=== PATIENT | female | born 1965 | race Caucasian/White ===

== ENCOUNTER → 2020-08-23 09:14 | Outpatient (REF) | payer MEDICAID, SELFPAY ==
--- NOTE | 2020-08-23 09:30 | NM_ITS ---
EXAMINATION: NM THYROID UPTAKE AND SCAN CLINICAL INFORMATION: Graves' disease. COMPARISON: No previous radionuclide thyroid scan is available for comparison. Thyroid ultrasound dated 05/21/2018 is available for comparison. TECHNIQUE: Following the oral administration of 287 microcuries of I-123 sodium iodide, thyroid uptake was performed and expressed as a percentage of the administrated dose. Gamma scintillation camera images of the thyroid in the anterior and right and left anterior oblique views were obtained using a pinhole collimator following the administration of 10.1 mCi Tc-99m pertechnetate. FINDINGS: The uptake is 8.6% at 4 hours and 23.7% at 24 hours (Normal radioiodine uptake at 24 hours is 10% to 30%). The radioiodine uptake is normal. The radio pertechnetate thyroid scintigram shows the thyroid gland to be normal in size, shape, and position. The right lobe is slightly larger than the left and shows diffusely more intense activity. There is minimal heterogeneity present bilaterally but no discrete focal abnormalities are present. A very faint and barely perceptible midline pyramidal lobe is visualized. A single anterior radioiodine image is similar to the radio pertechnetate image. IMPRESSION: Other than mild heterogeneity, this radioiodine scan is normal. The radioiodine uptake is also normal.
== END ==
LOC: HO.NUCMED 09:14
PROVIDERS: PCP Family Medicine; Visit Provider Internal Medicine
DX: E05.00 Thyrotoxicosis with diffuse goiter without thyrotoxic crisis or storm (principal)
CPT/HCPCS: 78014; A9512; A9516

== ENCOUNTER → 2020-10-11 10:08 | Outpatient (BNVA) | payer MEDICAID, SELFPAY | PROVIDERS: PCP Family Medicine; Referring Provider Family Medicine; Visit Provider Internal Medicine | DX: Z76.89 Persons encountering health services in other specified circumstances (principal) ==

== ENCOUNTER 2020-10-13 08:42 | Outpatient (REF) | payer MEDICAID, SELFPAY ==
[2020-10-13 10:54] LABS: Thyroid Stimulating Hormone 0.04 uIU/mL (0.32-4.0)
[2020-10-14 10:38] LABS: Triiodothyronine T3 Total 111 ng/dL (76-181)
== END 2020-10-13 08:43 | disposition home or self-care (01) ==
LOC: HO.LAB 08:42
PROVIDERS: PCP Family Medicine; Visit Provider Internal Medicine
DX: E05.00 Thyrotoxicosis with diffuse goiter without thyrotoxic crisis or storm (principal)
CPT/HCPCS: 84439; 84443; 84480

== ENCOUNTER 2020-11-14 08:43 | Outpatient (REF) | payer MEDICAID, SELFPAY ==
--- NOTE | 2020-11-14 08:46 | US_ITS ---
EXAMINATION: US THYROID CLINICAL INFORMATION: Thyrotoxicosis with diffuse goiter without thyrotoxic crisis or storm. COMPARISON: Thyroid ultrasound 05/21/2018. TECHNIQUE: Linear transducer moreland-scale and color Doppler examination with attention to the region of the thyroid. FINDINGS: SIZE: Measurements of the thyroid lobes and nodules are given in sagittal, anteroposterior and transverse dimensions respectively. Right Thyroid Lobe: 5.6 x 2.8 x 2.3 cm, volume 19.4 mL. Previously 5.8 x 3.1 x 2.3 cm, volume 21.6 mL. Parenchyma: The gland echotexture is heterogeneous. Thyroid vascularity is normal. Left Thyroid Lobe: 6.8 x 2.1 x 2.0 cm, volume 14.8 mL. Previously 5.2 x 2.7 x 2.1 cm, volume 15.4 mL. Parenchyma: The gland echotexture is heterogeneous. Thyroid vascularity is normal. Isthmus: 1.1 cm in maximum AP dimension. Previously 0.9 cm. RIGHT THYROID LOBE: No nodules. ISTHMUS: No nodules. LEFT THYROID LOBE: No nodules. NODES: No lymphadenopathy is seen in the tissue surrounding the thyroid gland. US/US thyroid IMPRESSION: Enlarged slightly heterogeneous thyroid gland. The thyroid gland longer appears hypervascular. No focal nodule or adenopathy is seen.
== END 2020-11-14 08:44 | disposition home or self-care (01) ==
LOC: HO.US 08:43
PROVIDERS: Visit Provider Internal Medicine
DX: E05.00 Thyrotoxicosis with diffuse goiter without thyrotoxic crisis or storm (principal)
CPT/HCPCS: 76536

== ENCOUNTER → 2020-12-07 08:36 | Outpatient (BNVA) | payer MEDICAID, SELFPAY | PROVIDERS: PCP Family Medicine; Referring Provider Family Medicine; Visit Provider Internal Medicine ==

== ENCOUNTER 2021-01-03 08:43 | Outpatient (REF) | payer MEDICAID, SELFPAY ==
[2021-01-03 10:24] LABS: Free T4 (Free Thyroxine) 1.05 ng/dL (0.71-1.85)
[2021-01-04 06:42] LABS: Triiodothyronine T3 Total 102 ng/dL (76-181)
== END 2021-01-03 08:44 | disposition home or self-care (01) ==
LOC: HO.LAB 08:43
PROVIDERS: PCP Family Medicine; Visit Provider Internal Medicine
DX: E05.00 Thyrotoxicosis with diffuse goiter without thyrotoxic crisis or storm (principal)
CPT/HCPCS: 36415; 84439; 84480

== ENCOUNTER → 2021-02-12 08:53 | Outpatient (BNVA) | payer MEDICAID, SELFPAY | PROVIDERS: PCP Family Medicine; Visit Provider Internal Medicine ==

== ENCOUNTER 2021-02-13 08:59 | Outpatient (REF) | payer MEDICAID, SELFPAY ==
[2021-02-13 10:45] LABS: Free T4 (Free Thyroxine) 1.02 ng/dL (0.71-1.85); Thyroid Stimulating Hormone 0.21 uIU/mL (0.32-4.0)
[2021-02-14 06:12] LABS: Triiodothyronine T3 Total 90 ng/dL (76-181)
== END 2021-02-13 09:00 | disposition home or self-care (01) ==
LOC: HO.LAB 08:59
PROVIDERS: PCP Family Medicine; Visit Provider Internal Medicine
DX: E05.00 Thyrotoxicosis with diffuse goiter without thyrotoxic crisis or storm (principal)
CPT/HCPCS: 36415; 84439; 84443; 84480

== ENCOUNTER → 2021-03-13 13:35 | Outpatient (BNVA) | payer MEDICAID, SELFPAY | PROVIDERS: PCP Family Medicine; Referring Provider Family Medicine; Visit Provider Internal Medicine | DX: I48.92 Unspecified atrial flutter (principal); I42.9 Cardiomyopathy, unspecified; F17.200 Nicotine dependence, unspecified, uncomplicated; Z79.899 Other long term (current) drug therapy; Z71.6 Tobacco abuse counseling | CPT/HCPCS: 93005; 99212 ==

== ENCOUNTER → 2021-03-14 09:13 | Outpatient (BNVA) | payer MEDICAID, SELFPAY | PROVIDERS: PCP Family Medicine; Visit Provider Physician Assistant | DX: M17.12 Unilateral primary osteoarthritis, left knee (principal); E05.00 Thyrotoxicosis with diffuse goiter without thyrotoxic crisis or storm; I42.9 Cardiomyopathy, unspecified; I48.0 Paroxysmal atrial fibrillation; F17.210 Nicotine dependence, cigarettes, uncomplicated; Z88.6 Allergy status to analgesic agent; Z88.5 Allergy status to narcotic agent; Z88.0 Allergy status to penicillin; Z88.2 Allergy status to sulfonamides; Z88.8 Allergy status to other drugs, medicaments and biological substances; Z91.018 Allergy to other foods | CPT/HCPCS: 20610; 99212; J1040 ==

== ENCOUNTER 2021-07-17 10:00 | Outpatient (REF) | payer MEDICAID, SELFPAY ==
[2021-07-17 11:47] LABS: Thyroid Stimulating Hormone 0.79 uIU/mL (0.32-4.0)
[2021-07-18 19:45] LABS: Triiodothyronine T3 Total 109 ng/dL (76-181)
== END 2021-07-17 10:01 | disposition home or self-care (01) ==
LOC: HO.LAB 10:00
PROVIDERS: PCP Family Medicine; Visit Provider Internal Medicine
DX: E05.00 Thyrotoxicosis with diffuse goiter without thyrotoxic crisis or storm (principal)
CPT/HCPCS: 36415; 84439; 84443; 84480

== ENCOUNTER 2021-08-15 08:53 | Outpatient (REF) | payer MEDICAID, SELFPAY ==
[2021-08-15 10:09] LABS: Free T4 (Free Thyroxine) 1.05 ng/dL (0.71-1.85); Thyroid Stimulating Hormone 0.44 uIU/mL (0.32-4.0)
[2021-08-18 06:16] LABS: Triiodothyronine T3 Total 110 ng/dL (76-181)
== END 2021-08-15 08:54 | disposition home or self-care (01) ==
LOC: HO.LAB 08:53
PROVIDERS: PCP Family Medicine; Visit Provider Surgery
DX: E05.00 Thyrotoxicosis with diffuse goiter without thyrotoxic crisis or storm (principal)
CPT/HCPCS: 36415; 84439; 84443; 84480

== ENCOUNTER 2021-10-19 09:45 | Outpatient (REF) | payer MEDICAID, SELFPAY ==
[2021-10-19 11:59] LABS: Free T4 (Free Thyroxine) 1.04 ng/dL (0.71-1.85); Thyroid Stimulating Hormone 5.02 uIU/mL (0.32-4.0); Vitamin D 25-OH Total 25.6 ng/mL (>30)
[2021-10-22 16:26] LABS: Calcium (PTHI) 9.8 mg/dL (8.6-10.4); PTHI 37 pg/mL (14-64)
== END 2021-10-19 09:46 | disposition home or self-care (01) ==
LOC: HO.LAB 09:45
PROVIDERS: PCP Family Medicine; Visit Provider Internal Medicine
DX: E03.9 Hypothyroidism, unspecified (principal); E55.9 Vitamin D deficiency, unspecified
CPT/HCPCS: 36415; 82306; 83970; 84439; 84443

== ENCOUNTER → 2021-10-24 07:43 | Outpatient (BNVA) | payer MEDICAID, SELFPAY | PROVIDERS: PCP Family Medicine; Visit Provider Internal Medicine ==

== ENCOUNTER 2022-01-21 08:28 | Outpatient (REF) | payer MEDICAID, SELFPAY ==
[2022-01-21 10:09] LABS: Free T4 (Free Thyroxine) 1.27 ng/dL (0.71-1.85); Thyroid Stimulating Hormone 1.66 uIU/mL (0.32-4.0); Vitamin D 25-OH Total 30.8 ng/mL (>30)
== END 2022-01-21 08:29 | disposition home or self-care (01) ==
LOC: HO.LAB 08:28
PROVIDERS: PCP Family Medicine; Visit Provider Internal Medicine
DX: E55.9 Vitamin D deficiency, unspecified (principal); E89.0 Postprocedural hypothyroidism
CPT/HCPCS: 36415; 82306; 84439; 84443

== ENCOUNTER 2022-04-12 12:09 | Outpatient (REF) | payer MEDICAID, SELFPAY ==
[2022-04-12 14:00] LABS: TSH reflex Free T4 3.25 uIU/mL (0.32-4.0)
== END 2022-04-12 12:10 | disposition home or self-care (01) ==
LOC: HO.LAB 12:09
PROVIDERS: PCP Family Medicine; Visit Provider Clinical Nurse Specialist Psychiatric/Mental Health, Adult
DX: Z79.899 Other long term (current) drug therapy (principal)
CPT/HCPCS: 36415; 84443

== ENCOUNTER → 2022-04-29 09:38 | Outpatient (REF) | payer MEDICAID, SELFPAY ==
--- NOTE | 2022-04-29 09:41 | CA_ITS ---
Transthoracic Echocardiogram Patient (Last, First, Middle): Prema Shaver M Gender: Female Date of : 1965 Age: 57 Procedure Date: 04/29/2022 Procedure Type: Transthoracic Echocardiogram Location: OP Height: 170.18 cm Weight: 108.86 kg BSA: 2.18 m2 Heart Rate: bpm BP: 120 / 70 mmHg Pc Network Technician: KHALIF Kimble MD: Claude Blank MD Transportation Project Manager: Nito Santos MD Symptoms: I42.9 - Cardiomyopathy, unspecified Study Quality: Good ECG Rhythm: Sinus Conclusions: - 1. Normal LV systolic function with impaired relaxation filling pattern 2. Normal cardiac valvular Doppler 3. Normal RV systolic pressure 4. No pericardial effusion Findings Left Ventricle Normal left ventricular size, thickness, and systolic function. The visually estimated ejection fraction is between 55-60%. Spectral Doppler is indicative of an impaired relaxation filling pattern. E/E prime ratio is <8, consistent with normal filling pressures. Evidence suggests grade I (mild) diastolic dysfunction. Right Ventricle Normal right ventricular cavity size and systolic function. Atria Both atria are normal in size. There is a mobile atrial septum noted. Interatrial shunt cannot be excluded. Aortic Valve Normal aortic valve structure and function. There is no aortic valve stenosis. There is no aortic valve regurgitation. Mitral Valve Normal mitral valve structure and function. There is trace mitral valve regurgitation. There is no mitral valve stenosis. Pulmonic Valve The pulmonic valve was not well visualized. Tricuspid Valve Likely normal tricuspid valve structure and function. There is trace tricuspid valve regurgitation. The right ventricular systolic pressure is normal. The right ventricular systolic pressure is 17 mmHg. Normal right atrial pressure. There is no evidence of pulmonary hypertension. Great Vessels All visible segments of the aorta are normal in size. The pulmonary artery was not well visualized. Venous The inferior vena cava is normal in size and collapses greater than 50% with inspiration. Pericardium/Pleural There is no evidence of pericardial effusion. Prior Study Comparison No significant change compared to prior study dated: 02/10/2019. Measurements 2D Linear Measurements IVSd: 1.09 0.6-0.9/0.6-1.0 cm LVIDd: 4.93 3.9-5.3/4.2-5.9 cm LVIDd Index: 2.26 2.4-3.2/2.2-3.1 cm/m2 LVIDs: 3.29 2.0-3.6 cm LVPWd: 1.01 0.7-1.1 cm LA Diam: 3.50 2.7-3.8/3.0-4.0 cm LAIDs Index: 1.61 1.5-2.3 cm/m2 LV Mass: 236.71 67-162/88-224 g LV Mass Index: 108.58 43-95/49-115 g/m2 LVOT Diam: 2.30 3.0+(-)1.3 cm 2D Systolic Function EF 4C: 61.50 >55% EF 2C: 56.30 >55% EF BiP: 59.60 >55% Mitral Valve MV Pk E: 0.59 MV PK A: 0.51 MV Decel Time: 310.00 E/A: 1.10 E'Lateral: 10.00 E'Medial: 6.09 E/E' Med: 9.70 E/E' Lat: 5.90 PHT: 91.00 MVA PHT: 2.42 Decel [place]: 1.91 Aortic Valve AoV Pk Oscar: 1.33 AoV Mn Oscar: 0.74 AoV VTI: 0.24 AoV Pk Grad: 7.00 Aov Mn Grad: 3.00 RODY Cont.VTI: 3.80 LVOT LVOT Pk Oscar: 0.93 LVOT Mn Oscar: 0.66 LVOT VTI: 0.22 LVOT Pk Grad: 3.00 LVOT Mn Grad: 2.00 LVOT Diam: 2.30 LVOT Area: 4.15 Diastolic Function MV Pk E: 0.59 MV Pk A: 0.51 E/A: 1.10 E'Medial: 6.09 E/E' Med: 9.70 E' Laterial: 10.00 E/E' Lat: 5.90 Right Ventricle TAPSE (mm): 19.50 TVS' Oscar: 11.00 Tricuspid Valve TR Pk Oscar: 1.86 TR Pk Grad: 14.00 RA Press: 3.00 RVSP: 17.00 Great Vessels Aorta Sinus of Valsalva: 3.57 2.0-3.[address] [place]: 3.48 1.7-3.4 cm Ao Asc: 3.90 2.1-3.4 cm Ao Arch: 3.50 Updated in Other Vendor System with Status of Final Nito Santos MD electronically signed on 04/29/2022 4:24:34 PM with status of Final
--- NOTE | 2022-04-29 09:41 | ECG_ITS ---
Hook-up date: 2022-04-29 09:24:00 Duration: 26:53:00 Test Indications: UNSPEC. ATRIAL FLUTTER Medications: [id number] QRS complexes 19 Ventricular ectopics which represent <1 % of total QRS comp. 8 Supraventricular ectopics which represent <1 % of total QRS comp. * Paced QRS complexs which represent % of total QRS comp. VENTRICULAR ECTOPY 19 Isolated 0 Bigeminal Cycles 0 Couplets 0 Runs 0 Beats in Runs * Beats LONGEST at * BPM at :: -- * Beats FASTEST at * BPM at :: -- SUPRAVENTRICULAR ECTOPY 8 Isolated 0 Couplets 0 Runs 0 Beats in Runs * Beats LONGEST at * BPM at :: -- * Beats FASTEST at * BPM at :: -- HEART RATES 48 MIN at 04:51:33 2022-04-30 72 AVG 109 MAX at 13:17:05 2022-04-29 LONGEST RR 1.3360 secs at 08:19:29 2022-04-30 S-T LEVELS Channel 1 - 128 mm at 09:24:00 2022-04-29 - 128 mm at 09:24:00 2022-04-29 Channel 2 - 128 mm at 09:24:00 2022-04-29 - 128 mm at 09:24:00 2022-04-29 Channel 3 - 128 mm at 02:84:31 -- - 128 mm at 02:84:31 Basic rhythm Normal sinus rhythm No long pause or profound bradycardia No sustained Atrial flutter Rare ectopy Patient did not report any symptoms in the diary Referred By: Claude Blank Overread By: AMRIT DENNISON MD
== END ==
LOC: HO.CARD 09:38
PROVIDERS: PCP Family Medicine; Visit Provider Internal Medicine
DX: I42.9 Cardiomyopathy, unspecified (principal); I48.92 Unspecified atrial flutter
CPT/HCPCS: 93225; 93226; 93306

== ENCOUNTER 2022-05-21 11:25 | Outpatient (REF) | payer MEDICAID, SELFPAY ==
[2022-05-21 12:55] LABS: Free T4 (Free Thyroxine) 1.21 ng/dL (0.71-1.85); Vitamin D 25-OH Total 29.7 ng/mL (>30)
== END 2022-05-21 11:26 | disposition home or self-care (01) ==
LOC: HO.LAB 11:25
PROVIDERS: Internal Medicine; PCP Family Medicine; Visit Provider Nurse Practitioner Family
DX: E89.0 Postprocedural hypothyroidism (principal); E55.9 Vitamin D deficiency, unspecified
CPT/HCPCS: 36415; 82306; 84439; 84443

== ENCOUNTER → 2022-07-18 12:19 | Outpatient (BNVA) | payer MEDICAID, SELFPAY | PROVIDERS: PCP Family Medicine; Visit Provider Physician Assistant | DX: M17.12 Unilateral primary osteoarthritis, left knee (principal) | CPT/HCPCS: 20610; 99212; J1040 ==

== ENCOUNTER 2022-10-04 11:28 | Outpatient (REF) | payer MEDICAID, SELFPAY ==
--- NOTE | ~2022-10-04 | XR_ITS ---
EXAMINATION: XR SHOULDER, LEFT CLINICAL INFORMATION: Left shoulder pain. COMPARISON: None TECHNIQUE: AP external rotation, Grashey, scapular Y, and axillary views of the left shoulder. FINDINGS: There is no evidence of acute fracture or dislocation of the left shoulder. No calcific tendinitis is appreciated. There is a large spur about the humeral head at the glenohumeral joint. Joint space appears maintained. There is some subchondral cysts present in the region of insertion of the supraspinatus tendon. There is some degenerative spurring seen at the acromioclavicular joint. No destructive bony lesions identified. XR/XR shoulder LT min 2V IMPRESSION: No evidence of acute fracture, dislocation, or calcific tendinitis of the left shoulder. Glenohumeral joint and acromioclavicular joint degenerative change as described.
--- NOTE | ~2022-10-04 | XR_ITS ---
EXAMINATION: XR LUMBOSACRAL SPINE WITH OBLIQUES CLINICAL INFORMATION: Back pain. COMPARISON: None TECHNIQUE: AP, both oblique, and lateral views of the lumbar spine. Lateral view of the lumbosacral junction. FINDINGS: There are 5 [id number]-[id number] lumbar vertebra. No acute fracture or spondylolysis is appreciated. There are mild grade 1 spondylolistheses seen at the L3-L4 and L2-L3 levels. There is mild scoliosis convex left. There is narrowing of the L2-L3 disc space with marginal spurring right laterally. There is some narrowing of the right lateral disc space at L3-L4. There is bilateral facet arthropathy seen at the right L5-S1 level and at the left L4-L5 and L5-S1 levels. No significant sacroiliac joint abnormality is appreciated. XR/XR lumbar spine 4V min IMPRESSION: Scoliosis with degenerative disc disease and facet arthropathy without evidence of acute fracture.
[2022-10-04 13:30] LABS: Free T4 (Free Thyroxine) 1.16 ng/dL (0.71-1.85); Thyroid Stimulating Hormone 6.55 uIU/mL (0.32-4.0)
== END 2022-10-04 11:29 | disposition home or self-care (01) ==
LOC: HO.LAB 11:28
PROVIDERS: Absent Provider Internal Medicine; PCP Family Medicine; Visit Provider Family Medicine
DX: M25.512 Pain in left shoulder (principal); M54.89 Other dorsalgia; E55.9 Vitamin D deficiency, unspecified; E89.0 Postprocedural hypothyroidism
CPT/HCPCS: 36415; 72110; 73030; 82306; 84439; 84443

== ENCOUNTER → 2022-11-19 10:26 | Outpatient (BNVA) | payer MEDICAID, SELFPAY | PROVIDERS: PCP Family Medicine; Referring Provider Family Medicine; Visit Provider Internal Medicine | DX: I48.92 Unspecified atrial flutter (principal); I42.9 Cardiomyopathy, unspecified; Z79.899 Other long term (current) drug therapy | CPT/HCPCS: 93005; 99212 ==

== ENCOUNTER 2023-04-04 06:12 | Outpatient (REF) | payer MEDICAID, SELFPAY | END 2023-04-04 06:13 | disposition home or self-care (01) | LOC: HO.HOSX 06:12 | PROVIDERS: Visit Provider Physician Assistant | DX: Z13.89 Encounter for screening for other disorder (principal) ==

== ENCOUNTER 2023-05-09 12:41 | Outpatient (REF) | payer MEDICAID, SELFPAY ==
[2023-05-09 14:11] LABS: Free T4 (Free Thyroxine) 1.25 ng/dL (0.71-1.85); Thyroid Stimulating Hormone 0.98 uIU/mL (0.32-4.0)
== END 2023-05-09 12:42 | disposition home or self-care (01) ==
LOC: HO.LAB 12:41
PROVIDERS: PCP Family Medicine; Visit Provider Internal Medicine
DX: E89.0 Postprocedural hypothyroidism (principal)
CPT/HCPCS: 36415; 84439; 84443

== ENCOUNTER 2023-11-27 13:28 | Outpatient (AMB) | payer MEDICAID, SELFPAY ==
--- NOTE | 2023-11-27 13:38 | A.OFFVIS_ITS ---
Intake Vital Signs 11/27/23 13:39 Height 5 ft 7 in Weight 245 lb BMI 38.4 Intake Visit Reasons: Ov- Left knee OA last injection 07/18/22 Intake Note: Prema a 57 year old female presents today for a follow up of left knee OA, last injection 07/18/22. Patient reports last injection provided her relief for about 9 months, she would like repeat injection today. Finds no relief with Tylneol and Advil. Allergies hydrocodone [From VICODIN] Allergy (Severe, Verified 11/19/22 10:29) ANAPHYLAXIS morphine [MORPHINE] Allergy (Severe, Verified 11/19/22 10:29) ANAPHYLAXIS aspirin [Aspirin] Allergy (Mild, Verified 11/19/22 10:29) SOB/RASH banana [Banana] Allergy (Mild, Verified 11/19/22 10:29) THROAT SWELLING Penicillins Allergy (Mild, Verified 11/19/22 10:29) RASH oxycodone [From Percocet] Allergy (Unknown, Verified 11/19/22 10:29) unknown Sulfa (Sulfonamide Antibiotics) Allergy (Unknown, Verified 11/19/22 10:29) Unknown HPI Ov- Left knee OA last injection 07/18/22 HPI Details 58-year-old female who returns to the [facility] today for a follow-up of left knee pain. She states she has pain in her left knee which is aggravated with ambulation and sleeping. She finds no relief with Tylenol or Advil. She had her last injection on 07/18/22 which lasted for about 9 months. She would like to repeat the injection. [facility] Medical History Cardiomyopathy Graves disease History of cardiomyopathy Paroxysmal atrial flutter Postoperative hypothyroidism Vitamin D deficiency Surgical History Hx of thyroidectomy History of bunionectomy Family History Father No problems noted. Mother No problems noted. Social History Alcohol intake: current Alcohol intake frequency: does not drink Cigarette Packs Per Day: 0.5 Cigarettes Per Day: 10 Advance Directives Date on File: 08/23/20 Review of Systems Const All systems reviewed & are unremarkable except as noted in HPI and below Physical Exam Vital Signs: BMI result Body Mass Index 38.4 Extrem Other: Left knee: Skin intact, no erythema or joint effusion. Tenderness along the medial and lateral joint line. Full ROM with crepitus. Negative Lorraine?s. No ligamentous laxity. NVI. Office Procedures Joint Injection/Drain Joint Injection/Drain Primary Site: left knee Prep: site was prepped using aseptic technique, ethochloride spray was applied and injection warnings given Injected: 80 mg of, DepoMedrol, with 8 mL of, 1% plain lidocaine and in the joint Approach Used: anterolateral Procedure: The patient tolerated the procedure well and there was some relief with the local anesthesia Coding 90281 - Glenohumeral/Tronchanteric Bursa/Intraarticular Procedure code (CPT) selection complete Assessment & Plan Assessment & Plan (1) Osteoarthritis of left knee: Code(s): M17.12 - Unilateral primary osteoarthritis, left knee Qualifiers: Osteoarthritis type: primary Qualified Code(s): M17.12 - Unilateral primary osteoarthritis, left knee Plan We discussed options today which include steroid injection. They did consent to move forward with the left knee injection, which was tolerated well. I recommended rest, ice and elevation and OTC anti-inflammatories PRN for discomfort. If symptoms persist or worsens over the next 6-8 weeks, patient will contact the office, otherwise follow-up as needed. Patient Instructions: Scribed for Laura Hurd PA-C, by Carlos Candelario medical aides teacher, on 11/27/2023 at 2:15 PM EST. Laura Avery PA-C, have personally reviewed and agree with the information entered by the scribe. Coding Level of Care Code Est Pt Level 3 (54729) Diagnoses Primary osteoarthritis of left knee M17.12 Osteoarthritis type: primary CPT Codes Coding - Joint 7: 24850 - Glenohumeral/Tronchanteric Bursa/Intraarticular ([id number])
[2023-11-27 13:39] VITALS: BMI 38.4
== END 2023-11-27 14:10 | disposition home or self-care (01) ==
PROVIDERS: PCP Family Medicine; Visit Provider Physician Assistant
DX: M17.12 Unilateral primary osteoarthritis, left knee (principal)
CPT/HCPCS: 20610; 99213

== ENCOUNTER → 2023-11-27 13:28 | Outpatient (BNVA) | payer MEDICAID, SELFPAY | PROVIDERS: PCP Family Medicine; Visit Provider Physician Assistant | DX: M17.12 Unilateral primary osteoarthritis, left knee (principal) | CPT/HCPCS: 20610; 99212; J1040 ==

== ENCOUNTER 2023-12-30 14:07 | Outpatient (REF) | payer MEDICAID, SELFPAY ==
[2023-12-30 16:31] LABS: Estimated Average Glucose 91 mg/dL; Hemoglobin A1c % 4.8 % (<6.0)
[2023-12-30 16:43] LABS: Alanine Aminotransferase 14 U/L (0-31); Albumin Level 4.4 g/dL (3.5-5.0); Alkaline Phosphatase 48 U/L (39-117); Anion Gap 14 (12-20); Aspartate Amino Transferase 14 U/L (5-31); Bilirubin Total 0.4 mg/dL (0.0-1.0); Blood Urea Nitrogen 15 mg/dL (9-16); Calcium 10.2 mg/dL (8.4-10.2); Carbon Dioxide 25 mmol/L (22-29); Chloride 108 mmol/L (96-108); Cholesterol 177 mg/dL (<200); Estimated Glomerular Filt Rate > 60; Glucose Random 92 mg/dL (60-115); HDL Cholesterol 60 mg/dL (>40); LDL Cholesterol Calculated 100 mg/dL (<100); Potassium 4.3 mmol/L (3.3-5.1); Sodium 143 mmol/L (135-145); Total Protein 7.2 g/dL (6.5-8.0); Triglycerides 86 mg/dL (<150)
[2023-12-30 16:51] LABS: Free T4 (Free Thyroxine) 1.19 ng/dL (0.71-1.85); Thyroid Stimulating Hormone 1.56 uIU/mL (0.32-4.0); Vitamin D 25-OH Total 69.1 ng/mL (>30)
[2023-12-30 17:21] LABS: Reflex LDLD? No
== END 2023-12-30 14:08 | disposition home or self-care (01) ==
LOC: HO.HHCL 14:07
PROVIDERS: Visit Provider Family Medicine
DX: E89.0 Postprocedural hypothyroidism (principal)
CPT/HCPCS: 36415; 80053; 80061; 82306; 83036; 84439; 84443

== ENCOUNTER 2024-01-14 10:07 | Outpatient (REF) | payer MEDICAID, SELFPAY | END 2024-01-14 10:08 | disposition home or self-care (01) | LOC: HO.MAMMO 10:07 | PROVIDERS: PCP Family Medicine; Visit Provider Family Medicine | DX: Z12.31 Encounter for screening mammogram for malignant neoplasm of breast (principal) | CPT/HCPCS: 77063; 77067 ==

== ENCOUNTER → 2024-01-14 10:30 | Outpatient (BNV) | payer MEDICAID, SELFPAY | PROVIDERS: PCP Family Medicine; Visit Provider Radiology Diagnostic Radiology | DX: Z12.31 Encounter for screening mammogram for malignant neoplasm of breast (principal) | CPT/HCPCS: 77063; 77067 ==

== ENCOUNTER 2024-08-17 09:28 | Outpatient (AMB) | payer MEDICAID, SELFPAY ==
--- NOTE | 2024-08-17 09:31 | A.OFFVIS_ITS ---
Vital Signs 08/17/24 09:40 Height 5 ft 7 in Weight 245 lb BMI 38.4 Intake Visit Reasons: Inj-Left knee OA last injection -last inj 11/27/23 Intake Note: Prema a 59 year old female who presents today for a follow up of left knee OA. Patient reports her last injection on 11/27/23 provided her with relief until about 6 weeks ago. She would like to repeat injection today. Allergies hydrocodone [From VICODIN] Allergy (Severe, Verified 08/17/24 09:40) ANAPHYLAXIS morphine [MORPHINE] Allergy (Severe, Verified 08/17/24 09:40) ANAPHYLAXIS aspirin [Aspirin] Allergy (Mild, Verified 08/17/24 09:40) SOB/RASH banana [Banana] Allergy (Mild, Verified 08/17/24 09:40) THROAT SWELLING Penicillins Allergy (Mild, Verified 08/17/24 09:40) RASH oxycodone [From Percocet] Allergy (Unknown, Verified 08/17/24 09:40) unknown Sulfa (Sulfonamide Antibiotics) Allergy (Unknown, Verified 08/17/24 09:40) Unknown Medication List - Last Reconciled 08/17/24 by Laura Hurd PA-C aripiprazole (Abilify) 15 mg PO DAILY cholecalciferol (vitamin D3) 25 mcg PO DAILY 30 days clonazepam 1 mg PO DAILY levothyroxine 175 mcg PO DAILY 30 days loratadine 10 mg PO DAILY metoprolol tartrate 25 mg PO BID topiramate (Topamax) 25 mg PO BID trazodone [address] [facility] Medical History Cardiomyopathy Graves disease History of cardiomyopathy Paroxysmal atrial flutter Postoperative hypothyroidism Vitamin D deficiency Surgical History Hx of thyroidectomy History of bunionectomy Family History Father No problems noted. Mother No problems noted. Social History Alcohol intake: current Alcohol intake frequency: does not drink Cigarette Packs Per Day: 0.5 Cigarettes Per Day: 10 Advance Directives Date on File: 08/23/20 Review of Systems Const All systems reviewed & are unremarkable except as noted in HPI and below Physical Exam Vital Signs: BMI result Body Mass Index 38.4 Extrem Other: Left knee: Skin intact, no erythema or joint effusion. Tenderness along the medial and lateral joint line. Full ROM with crepitus. Negative Lorraine?s. No ligamentous laxity. NVI. Office Procedures Joint Injection/Aspiration Joint Injection/Aspiration Primary Site: left knee Prep: site was prepped using aseptic technique, ethochloride spray was applied and injection warnings given Injected: 80 mg of, DepoMedrol, with 8 mL of, 1% plain lidocaine and in the joint Approach Used: anterolateral Procedure: The patient tolerated the procedure well and there was some relief with the local anesthesia Coding 45615 - Glenohumeral/Tronchanteric Bursa/Intraarticular Procedure code (CPT) selection complete Assessment & Plan Assessment & Plan (1) Osteoarthritis of left knee: Code(s): M17.12 - Unilateral primary osteoarthritis, left knee Category: Medical Qualifiers: Osteoarthritis type: primary Qualified Code(s): M17.12 - Unilateral primary osteoarthritis, left knee Plan We discussed options today, which include steroid injection. The patient did consent to move forward with the injection, which was tolerated well.? I recommended rest, ice and elevation and OTC antiinflammatories prn for discomfort. If symptoms persist over the next 6-8 weeks, they will contact our office, otherwise, prn Coding Level of Care Code Est Pt Level 3 (54701) Complex EM visit Add On G2211 Diagnoses Primary osteoarthritis of left knee M17.12 Osteoarthritis type: primary CPT Codes Coding - Joint 7: 69955 - Glenohumeral/Tronchanteric Bursa/Intraarticular ([id number])
[2024-08-17 09:40] VITALS: BMI 38.4
== END 2024-08-17 09:49 | disposition home or self-care (01) ==
PROVIDERS: PCP Family Medicine; Visit Provider Physician Assistant
DX: M17.12 Unilateral primary osteoarthritis, left knee (principal)
CPT/HCPCS: 20610; 99213

== ENCOUNTER → 2024-08-17 09:28 | Outpatient (BNVA) | payer MEDICAID, SELFPAY | PROVIDERS: PCP Family Medicine; Visit Provider Physician Assistant | DX: M17.12 Unilateral primary osteoarthritis, left knee (principal) | CPT/HCPCS: 20610; 99212; J1010; J2003 ==

== ENCOUNTER 2024-12-30 12:26 | Outpatient (AMB) | payer MEDICAID, SELFPAY ==
--- NOTE | 2024-12-30 12:28 | A.OFFVIS_ITS ---
Vital Signs 12/30/24 12:29 Height 5 ft 7 in Weight 238 lb 15.697 oz BMI 37.4 BP 110/70 Blood Pressure Location Lt brachial Position Sitting Pulse 78 Pulse Source Pulse Oximeter Intake Visit Reasons: 2 yrs followup w/ekg dx: paf Patient Access Specialist Required: No Accompanied by: Self / Same As Patient Allergies hydrocodone [From VICODIN] Allergy (Severe, Verified 08/17/24 09:40) ANAPHYLAXIS morphine [MORPHINE] Allergy (Severe, Verified 08/17/24 09:40) ANAPHYLAXIS aspirin [Aspirin] Allergy (Mild, Verified 08/17/24 09:40) SOB/RASH banana [Banana] Allergy (Mild, Verified 08/17/24 09:40) THROAT SWELLING Penicillins Allergy (Mild, Verified 08/17/24 09:40) RASH oxycodone [From Percocet] Allergy (Unknown, Verified 08/17/24 09:40) unknown Sulfa (Sulfonamide Antibiotics) Allergy (Unknown, Verified 08/17/24 09:40) Unknown Medication List - Last Reconciled 12/30/24 by Claude Blank MD aripiprazole (Abilify) 15 mg PO DAILY cholecalciferol (vitamin D3) 25 mcg PO DAILY 30 days clonazepam 1 mg PO DAILY cyclobenzaprine 10 mg PO BEDTIME ibuprofen 400 mg PO Q8H levothyroxine 175 mcg PO DAILY 30 days loratadine 10 mg PO DAILY metoprolol tartrate 25 mg PO BID topiramate (Topamax) 25 mg PO BID trazodone 75 mg PO DAILY HPI Comments Details: Prema returns for follow-up regarding atrial flutter and cardiomyopathy. To recall, she underwent TERENCE/cardioversion in 2016 for atrial flutter. She is maintained only on beta-blockers and has been doing quite well. Due to low thromboembolic risk, not on any anticoagulation. Also due to lack of recurrent episodes. Denies any angina or palpitations or any other cardiac complaints. [facility] Medical History Cardiomyopathy Graves disease History of cardiomyopathy Paroxysmal atrial flutter Postoperative hypothyroidism Vitamin D deficiency Surgical History Hx of thyroidectomy History of bunionectomy Family History Father No problems noted. Mother No problems noted. Social History Alcohol intake: current Alcohol intake frequency: does not drink Cigarette Packs Per Day: 0.5 Cigarettes Per Day: 10 Advance Directives Date on File: 08/23/20 Review of Systems Const Denies chills, Reports fatigue, Denies fever(s), Denies weight gain and Denies weight loss ENT Denies dizziness Card Denies chest pain, Denies leg edema, Denies lightheadedness, Denies palpitations, Denies dyspnea on exertion, Denies orthopnea and Denies other Resp Denies cough and Denies dyspnea on exertion GI Denies hematochezia and Denies change in stool character Musc Denies abnormal gait, Denies muscle weakness, Denies numbness, Denies radiating pain into limb and Denies tingling Neuro Denies abnormal gait, Denies dizziness, Denies numbness and Denies tingling Endo Reports fatigue and Denies palpitations Physical Exam Vital Signs: Last Vital Signs Pulse 78 12/30/24 12:29 BP 110/70 12/30/24 12:29 BMI result Body Mass Index 37.4 Const General: comfortable and no acute distress Orientation/consciousness: patient oriented x3 HEENT Other: Unremarkable Head: Yes normal to inspection Neck Neck: Yes normal visual inspection Chest Chest palpation & inspection: normal inspection of the chest Resp Auscultation: clear to auscultation bilaterally Cardio Palpation: normal PMI Heart sounds: S1 normal heart sound present, S2 normal heart sound present, no gallops, no murmurs and no rubs GI Palpation (GI): Soft to palpation Back/Spine/Pelvis Other: unremarkable Skin General skin exam: no rashes or lesions noted Neuro General: patient oriented x3 Extrem General: Yes normal to inspection Psych Mental Status: mental status grossly normal Office Procedures EKG Details: EKG with underlying sinus rhythm at 78/Min; nonspecific ST-T changes; [place]. [id number], Complete Assessment & Plan Assessment & Plan (1) Paroxysmal atrial flutter: Code(s): I48.92 - Unspecified atrial flutter Category: Medical Plan: Continue beta-blockers. Not on anticoagulation due to lack of recurrence, as well as low thromboembolic risk. 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 Most recent echocardiogram shows normal LVEF at 55-60%. Plan If any concerning cardiac symptoms, advised her to contact us immediately. She understands. Coding Level of Care Code Est Pt Level 3 (04772) Diagnoses Paroxysmal atrial flutter I48.92 Cardiomyopathy I42.9 CPT Codes EKG - CPT: 73109-[id number], Complete ([id number])
[2024-12-30 12:29] VITALS: BP 110/70; PULSE 78; BMI 37.4
--- OUTSIDE RECORDS SUMMARY | 2024-12-30 13:22 | XMS_ITS | Encounter Summary ---
Author Organization [employer] Address [address] [place] [address] Care Team Providers Care Tubing Oiler Name Role Phone Jaci Stauffer MD Primary Care Provider [phone] Reason for Visit * Reason Onset Date Comments Med Refill 09/13/2024 Encounter Details Date Type Department Care Team (Late st Contact Info) Description 09/13/2024 Telephone [facility] MEDICINE [address] [place] [address] Jaci Stauffer MD [address] [place] [address] Med Refill Social History Tobacco Use Types Packs/Day Years Used Date Smoking Tobacco: Never Smokeless Tobacco: Never Alcohol Use Standard Drinks/Week Comments Never 0 (1 standard drink = 0.6 oz pur e alcohol) Alcohol Answer Date Recorded Frequency of Alcohol Consumption Not on file 12/30/2023 Average Number of Drinks Not on file 024 Frequency of Binge Drinking Not on file 12/12 Score 0 12/30/2023 Depression Answer Date Recorded Patient Health Questionnaire-9 Score 0 12/30/2023 Patient Health Questionnaire-9 Score 0 12/30/2023 Last PHQ-9: Questionnaire Data Not on file 0 12/30/2023 Housing Stability Answer Date Recorded What is your housing situation today? I have logan lassiter 11/13/[address] you li ve. Do you have problems with any of the following? None of the above 11/13/2023 Food Insecurity Answer Date Recorded Within the past 12 months, y ou worried that your food would run out before you got money to buy more: Never True 11/13/2023 Within the past 12 months,th e food you bought just didn't last and you didn't have enough money to get more: Never True 02/2024 Transportation Answer Date Recorded In the past 12 months, has l ack of transportation kept you from medical appts, meetings, work or from getting things needed for daily living? Yes, it has kept me from medical appointments or getting medications. 12/30/2023 Utilities Answer Date Recorded In the past 12 months, has t he electric, gas, oil or water company threatened to shut off services in your home? No 11/13/2023 Depression Answer Date Recorded Patient Health Questionnaire-2 Score 0 12/30/2023 Comments Unknown Sex and Gender Information Value Date Recorded Sex Assigned at Female 09/09/2022 10:18 AM EDT Legal Sex Female 10:18 AM EDT Gender Identity Female 09/09/2022 10:18 AM EDT Sexual Orientation Straight 09/09/2022 10 :18 AM EDT documented as of this encounter Miscellaneous Notes * Telephone Encounter - Misty Cooley LPN - 09/13/2024 1:12 PM EST Medication pended to PCP. * Telephone Encounter - Mirella Kwan - 09/13/2024 11:58 AM EST TC from pt requesting medication refill. Medications needing refill : cyclobenzaprine (Flexeril) 10 MG tablet levothyroxine (Synthroid, Levoxyl) 175 MCG tablet loratadine (Claritin) 10 MG tablet To be sent to: [facility] documented in this encounter Plan of Treatment Upcoming Encounters Date Type Department Care Team (Late st Contact Info) Description 01/04/2025 10:00 AM EST Office Visit [facility] MEDICINE [address] [place] [address] Jaci Stauffer MD [address] [place] [address] documented as of this encounter Visit Diagnoses Not on filedocumented in this encounter Additional Health Concerns Assessment Noted Time PHQ-9 Depression Total Score: 0 12/30/19 24 1:18 PM EST documented as of this encounter Care Teams Tubing Oiler Relationship Specialty Start Date End Date Jaci Stauffer MD [address] [place] [address] PCP - General Family Medicine 10/22/12 documented as of this encounter
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
--- OUTSIDE RECORDS SUMMARY | 2024-12-30 13:22 | XMS_ITS | Encounter Summary ---
Author Organization [employer] Address [address] [place] [address] Care Team Providers Care Horticultural Agent Name Role Phone Jaci Stauffer MD Primary Care Provider [phone] Reason for Visit * Reason Onset Date Comments Chart Prep 12/29/2024 Encounter Details Date Type Department Care Team ([facility] st Contact Info) Description 12/29/[address] [facility] MEDICINE [address] [place] [address] Jaci Stauffer MD [address] [place], [place] [phone] Chart Prep Social History Tobacco Use Types Packs/Day Years [...] the past 12 months, has t he [employer], gas, oil or water company threatened to [...] encounter Miscellaneous Notes * Telephone Encounter - Breanne Fair [place] - 12/29/2024 11:45 AM EST Chart Prep Labs: done Images: done Vaccines due: Covid Due, Hep A Due, PCV20 Due, Flu Due, and Shingles in pharmacy Due Referrals: Gastroenterology pt was contacted multiple times to schedule 7 never returned the call and Pulmonology referral was cancelled since pcp has to send a Thoracic Surgeon referral instead. Screenings: Colonoscopy , PAP, and HIV screening Overdue care gaps: Sbirt, SDOH, PHQ-9, and Oral Health documented in this encounter Plan of Treatment Upcoming Encounters Date Type Department Care Team (Late st Contact Info) Description 01/04/2025 10:00 AM EST Office Visit [facility] MEDICINE [address] [place] [address] Jaci Stauffer MD [address] [place] [address] documented as of this encounter Visit Diagnoses Not on filedocumented in this encounter Additional Health Concerns Assessment Noted Time PHQ-9 Depression Total Score: 0 12/30/19 24 1:18 PM EST documented as of this encounter Care Teams Horticultural Agent Relationship Specialty Start Date End Date Jaci Stauffer MD [address] [place] [address] PCP - General Family Medicine 10/22/12 documented as of this encounter
--- OUTSIDE RECORDS SUMMARY | 2024-12-30 13:22 | XMS_ITS | Encounter Summary ---
Author Organization [employer] Address [address] [facility] [address] [address] 7[address] [place] [address] Care Team Providers Care Material Processor Name Role Phone Jaci Stauffer MD Primary Care Provider [phone] Encounter Details Date Type Department Care Team (Latest Contact Info) Description 12/28/2024 Travel Social History Tobacco Use Types Packs/Day Years [...] AM EDT documented as of this encounter Plan of Treatment Upcoming Encounters Date Type Department Care Team (Late st Contact Info) Description 01/04/2025 10:00 AM EST Office Visit [facility] [address] [place] [address] Jaci Stauffer MD [address] [place] [address] documented as of this encounter Visit Diagnoses Not on filedocumented in this encounter Additional Health Concerns Assessment Noted Time PHQ-9 Depression Total Score: 0 12/30/19 24 1:18 PM EST documented as of this encounter Care Teams Material Processor Relationship Specialty Start Date End Date Jaci Stauffer MD [address] [place] [phone] PCP - General Family Medicine 10/22/12 documented as of this encounter
--- OUTSIDE RECORDS SUMMARY | 2024-12-30 13:22 | XMS_ITS | Encounter Summary ---
Author Organization [employer] Address [address] [facility] [address] 7[address] [place] [address] Care Team Providers Care Neurological Surgeon Name Role Phone Jaci Stauffer MD Primary Care Provider [phone] Reason for Visit * Reason Comments Pre-visit Planning Pre-visit planning - LVM Encounter Details Date Type Department Care Team ([facility] st Contact Info) Description 12/22/2024 Patient Outreach [facility] [address] [place] [address] Jaci Stauffer MD [address] [place] [address] Pre-visit Planning (Pre-visit planning - LVM ) Social History Tobacco Use Types Packs/Day Years [...] AM EDT documented as of this encounter Progress Notes * Alina Cantu - 12/22/2024 11:50 AM EST GALEN Gaytan placed outbound call to patient to complete pre-visit planning. No answer at this time. Patient name and were not confirmed. CC left voicemail requesting return call. Direct contact information provided. documented in this encounter Plan of Treatment Upcoming Encounters Date Type Department Care Team (Late st Contact Info) Description 01/04/2025 10:00 AM EST Office Visit [facility] [address] [place] [address] Jaci Stauffer MD [address] [place] [address] documented as of this encounter Visit Diagnoses Not on filedocumented in this encounter Additional Health Concerns Assessment Noted Time PHQ-9 Depression Total Score: 0 12/30/19 24 1:18 PM EST documented as of this encounter Care Teams Neurological Surgeon Relationship Specialty Start Date End Date Jaci Stauffer MD [address] [place] [address] PCP - General Family Medicine 10/22/12 documented as of this encounter
== END 2024-12-30 13:06 | disposition home or self-care (01) ==
PROVIDERS: PCP Family Medicine; Visit Provider Internal Medicine
DX: I48.92 Unspecified atrial flutter (principal); I42.9 Cardiomyopathy, unspecified
CPT/HCPCS: 93010; 99213

== ENCOUNTER → 2024-12-30 12:26 | Outpatient (BNVA) | payer MEDICAID, SELFPAY | PROVIDERS: PCP Family Medicine; Visit Provider Internal Medicine | DX: I48.92 Unspecified atrial flutter (principal); I42.9 Cardiomyopathy, unspecified | CPT/HCPCS: 93005; 99212 ==

== ENCOUNTER 2025-01-04 11:14 | Outpatient (REF) | payer MEDICAID, SELFPAY ==
[2025-01-04 13:15] LABS: MANUAL DIFF FLAG NO
[2025-01-04 13:36] LABS: Basophils Absolute Auto 0.1 X10*3/uL (0.0-0.2); Basophils Percent Auto 0.7 % (0-2); Eosinophils Absolute Auto 0.2 X10*3/uL (0.0-0.4); Eosinophils Percent Auto 3.3 % (0-4); Hematocrit 41.3 % (37.0-47.0); Hemoglobin 13.6 g/dl (12.0-16.0); Imm Gran Abs Auto 0.02 X10*3/uL (0.00-0.03); Imm Gran Pct Auto 0.3 % (0.0-0.4); Lymphocytes Absolute Auto 2.7 X10*3/uL (1.2-4.9); Mean Corpuscular HGB Conc 32.9 g/dl (31.0-35.0); Mean Corpuscular Hemoglobin 31.8 pg (27.0-33.0); Mean Corpuscular Volume 96.5 fL (80.0-98.0); Mean Platelet Volume 9.5 fL (9.4-12.3); Monocytes Absolute Auto 0.3 X10*3/uL (0.1-1.2); Monocytes Percent Auto 4.9 % (2-11); Neutrophils Absolute Auto 3.3 x10*3/uL (2.0-8.3); Neutrophils Percent Auto 49.8 % (45-73); Platelet Count 259 X10*3/uL (160-400); Red Blood Count 4.28 X10*6/uL (4.20-5.50); Red Cell Distribution Width 12.7 % (11.0-16.0); White Blood Count 6.7 X10*3/uL (4.8-10.8)
[2025-01-04 13:43] LABS: Estimated Average Glucose 97 mg/dL
--- OUTSIDE RECORDS SUMMARY | 2025-01-04 13:45 | XMS_ITS | Encounter Summary ---
Author Organization [employer] Address [address] [facility] 7t [place] [address] Care Team Providers Care Ceramist Name Role Phone Jaci Stauffer MD Primary Care Provider [phone] Reason for Visit * Reason Onset Date Comments Chart Prep 12/29/2024 Encounter Details Date Type Department Care Team ([facility] st Contact Info) Description 12/29/2024 Telephone [facility] [address] [place] [address] Jaci Stauffer MD [address] [place] [address] Chart Prep Social History Tobacco Use Types [...] the past 12 months, has t he [employer], gas, oil or water company threatened to [...] documented in this encounter Plan of Treatment Not on file documented as of this encounter Visit Diagnoses Not on filedocumented in this encounter Additional Health Concerns Assessment Noted Time PHQ-9 Depression Total Score: 0 12/30/19 24 1:18 PM EST documented as of this encounter Care Teams Ceramist Relationship Specialty Start Date End Date Jaci Stauffer MD [address] [place] [phone] PCP - General Family Medicine 10/22/12 documented as of this encounter
--- OUTSIDE RECORDS SUMMARY | 2025-01-04 13:45 | XMS_ITS | Clinical Summary ---
Author Organization [employer] Address [address] [facility] [address] 7[address] [place] [address] Care Team Providers Care Travel Accommodation Inspector Name Role Phone Jaci Stauffer MD Primary Care Provider [phone] Allergies Active Allergy Reactions Criticality Noted Date Comments Banana 11/19/2023 Celecoxib 03/11/2013 Morphine 02/11/2017 Other reaction(s): breathing difficulty, Trouble Breathing Penicillins Rash Low Salicylates Rash Low Medications acetaminophen (Tylenol) 500 MG tablet take 1 tablet (500MG) by oral route every 6 hours as needed 7 Active ARIPiprazole (Abilify) 15 MG tablet take [...] Oral route once daily 90 tablet 3 4 Active cyclobenzaprine (Flexeril) 10 MG tablet TAKE 1 TABLET BY MOUTH AT BEDTIME IF NEEDED. 30 tablet 3 4 Active levothyroxine (Synthroid, Levoxyl) 175 MCG tablet TAKE ONE TABLET (175 MCG) BY MOUTH EVERY MORNING. 90 tablet 1 4 Active loratadine (Claritin) 10 MG tabletIndication s:Allergic rhinitis, unspecified seasonality, unspecified trigger TAKE 1 TABLET BY MOUTH EVERY MORNING 90 tablet 1 4 Active traZODone (Desyrel) 50 MG tablet TAKE 1 AND 1/2 TABLET BY MOUTH AT BEDTIME 45 tablet 3 5 Active nicotine (Nicoderm, Step 1) 21 MG/24HR patch Place 1 patch on the skin 1 (one) time each day at the same time. 42 patch 1 5 Active nicotine polacrilex (Commit) 4 MG lozenge Dissolve 1 lozenge (4 mg) in the mouth every 2 (two) hours if needed for smoking cessation. 100 lozenge 5 02/04/20 25 Active Active Problems Problem Noted Date Diagnosed Date Low back pain with radiation 12/29/2024 Vitamin D deficiency 01/03/2024 Assessment & Plan (01/03/2024 7:21 AM EST): - continue vitamin D supplementation Graves' disease 11/19/2023 11/19/2023 Assessment & Plan (12/29/2023 2:35 PM EST): Forestry Aide: [facility], 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 s/p thyroidectomy 08/28/21 Assessment & Plan (11/19/2023 4:57 PM EST): Forestry Aide: [facility], 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 s/p thyroidectomy 08/28/21 Postoperative hypothyroidism 11/19/2023 Assessment & Plan (12/29/2023 2:36 PM EST): -s/p thyroidectomy on 08/28/21 -current replacement: Levothyroxine 175mcg daily -last TSH 6.56 on 10/04/22 Assessment & Plan (11/19/2023 4:58 PM EST): -s/p thyroidectomy on 08/28/21 -current replacement: Levothyroxine 175mcg daily -last TSH 6.56 on 10/04/22 Paroxysmal atrial flutter 01/16/20172023 Assessment & Plan (12/29/2023 2:30 PM EST): Dx: March 2016. Summer Internship: Dr. Brewer at [facility] cardiology, last seen in Nov 2022 -last TTE 04/29/22: showed nml EF 60-65%. -last holter monitor 04/29/22, nml -Current medications: metoprolol 25 mg bid Treatment Hx: Amiodarone discontinued in 2017, Eliquis discontinued in February 2019 Continue current treatment plan. Assessment & Plan (11/19/2023 4:54 PM EST): Dx: March 2016. Summer Internship: Dr. Brewer at [facility] cardiology, last seen in Nov 2022 -last [...] smoking cessation - lung cancer screening program Osteoarthritis of both knees 11/21/2015 Assessment & Plan (01/03/2025 8:58 PM EST): - following with [facility] Ortho - last seen in November 2023 and received steroid injection to left knee (reported the effect of knee injection lasts about 9 months) - continue rest, ice, leg elevation, and APAP prn for discomfort Assessment & Plan (12/29/2023 2:34 PM EST): - following with [facility] Ortho - last seen in November 2023 and received steroid injection to left knee (reported the effect of knee injection lasts about 9 months) - continue rest, ice, leg elevation, and APAP prn for discomfort Assessment & Plan (11/19/2023 5:01 PM EST): - following with [facility] Ortho - last seen in Jul 2022 and received steroid injection Chronic headache disorder 08/10/20142023 Assessment & Plan [...] relaxant -consider referring to pain management at [facility] Mood disorder 03/11/2013 11/19/2023 Assessment & Plan (12/29/2023 2:41 PM EST): - MDD - behavioral health service provider: [facility] Obesity 03/11/2013 11/19/2023 Assessment & Plan (01/03/2024 7:16 AM EST): - continue working on lifestyle modifications - sleep study in May 2017 showed no WILLIAMS Encounters Date Type Department Care Team Description 01/04/2025 10:00 AM EST Office Visit [address] [address] Jaci Stauffer MD Routine general medical examination at a health care facility (Primary Dx); Chronic nonintractable headache, unspecified headache type; Paroxysmal atrial flutter (CMS/HCC); Primary osteoarthritis of both knees; Lumbar spondylosis; Vitamin D deficiency; Postoperative hypothyroidism; Graves' disease; Tobacco dependence syndrome; Mood disorder (CMS/HCC); Migraine without status migrainosus, not intractable, unspecified migraine type; Chronic recurrent major depressive disorder (CMS/HCC); Allergic rhinitis, unspecified seasonality, unspecified trigger; Low back pain with radiation; Fatigue, unspecified type; Encounter for immunization; Screening for diabetes mellitus; Routine screening for STI (sexually transmitted infection); Screening for colon cancer 01/04/2025 Travel 12/29/[address] [address] Jaci Stauffer MD Chart Prep 12/28/2024 Travel 12/22/2024 Patient Outreach [address] [address] Jaci Stauffer MD Pre-visit Planning (Pre-visit planning - LVM ) 11/15/2024 Refill [facility] [address] [place] [address] Jaci Stauffer MD from Last 3 Months Immunizations Name Administration Dates Next Due DTaP 06/27/2006 Hep A, Adult 01/04/2025,12/30/2023 Hep B, adult 07/29/2010,01/04/2009,08/19/2008 Influenza injectable quadriv alent preservative free 09/30/2022,09/03/2021 Influenza, seasonal, injecta ble, preservative free 01/04/2025 Pfizer Covid-19 Vaccine 12+ 01/04/2025 Pneumococcal Conjugate PCV 20 01/04/2025 Pneumococcal Polysaccharide PPSV23 06/14/2013 Td (adult), 5 Lf tetanus tox oid, preservative free, adsorbed 08/01/2015 Tdap 06/14/2013 Social History Tobacco Use Types Packs/Day Years Used Date Smoking Tobacco: Every Day Cigarettes 1 42.2 Started: 1981 Smokeless Tobacco: Never Tobacco Cessation:Ready to Q uit: Not Asked; Counseling Given: Not Answered Alcohol Use Standard Drinks/Week Comments Never 0 (1 standard drink = 0.6 oz pur e alcohol) Alcohol Answer Date Recorded Frequency of Alcohol Consumption Not on file 12/30/2023 Average Number of Drinks Not on file 024 Frequency of Binge Drinking Not on file 12/12 Score 0 12/30/2023 Depression Answer Date Recorded Patient Health Questionnaire-9 Score 0 01/04/2025 Patient Health Questionnaire-9 Score 0 01/04/2025 Last PHQ-9: Questionnaire Data Not on file 0 01/04/2025 Housing Stability Answer Date Recorded What is your housing situation today? I have logan lassiter 01/04/[address] you li ve. Do you have problems with any of the following? None of the above 01/04/2025 Food Insecurity Answer Date Recorded Within the past 12 months, y ou worried that your food would run out before you got money to buy more: Never True 01/04/2025 Within the past 12 months,th e food you bought just didn't last and you didn't have enough money to get more: Never True Transportation Answer Date Recorded In the past 12 months, has l ack of transportation kept you from medical appts, meetings, work or from getting things needed for daily living? No 01/04/2025 Utilities Answer Date Recorded In the past 12 months, has t he electric, gas, oil or water company threatened to shut off services in your home? No 01/04/2025 Depression Answer Date Recorded Patient Health Questionnaire-2 Score 0 01/04/2025 Internet Access Answer Date Recorded Internet Access Q1 Yes 01/04/2025 Internet Access Q2 Not on file 01/04/2025 Comments Unknown Sex and Gender Information Value Date Recorded Sex Assigned at Female 09/09/2022 10:18 AM EDT Legal Sex Female 10:18 AM EDT Gender Identity Female 09/09/2022 10:18 AM EDT Sexual Orientation Straight 09/09/2022 10 :18 AM EDT Last Filed Vital Signs Vital Sign Reading Time Taken Comments Blood Pressure 122/75 01/04/2025 10:21 AM EST Pulse 83 01/04/2025 10:21 AM EST Temperature 36.2 ??C (97.1 ??F) 01/04/2025 10:[address] Respiratory Rate 21 01/04/2025 10:21 AM EST Oxygen Saturation 97% 01/04/2025 10:21 AM EST Inhaled Oxygen Concentration - - Weight 105 kg (231 lb 6.4 oz) 01/04/2025 10:21 A M EST Height 170.2 cm (5' 7 ) 01/04/2025 10:21 AM EST Body Mass Index 36.24 01/04/2025 10:21 AM EST Plan of Treatment Health Maintenance Due Date Last Done Comments CT Colonography 1966 Colonoscopy 1966 Colorectal Cancer Screening 1965 FIT DNA/Cologuard 1966 FIT 1966 FOBT 1966 HIV Screening 1965 Sigmoidoscopy 1966 Hepatitis C Screening 1984 Lung Cancer Screening 2016 Zoster Vaccines (1 of 2) 2016 Pap Smear 06/13/2023 06/13/2020 Cervical Cancer Screening 06/13/2025 HPV/Cotest 06/13/2025 06/13/2020, 05/24/2019 DTaP/Tdap/Td Vaccines (4 - Td or Tdap) 08/01/2025 08/01/2015, 06/14/2013, 06/27/2006 Alcohol/Substance Use Screening 01/04/2026 01/04/2025 Depression Screening 01/04/2026 01/04/2025, 01/04/20 SDOH Screening 01/04/2026 01/04/2025 Tobacco Screening 01/04/2026 01/04/2025 Mammogram 01/13/2026 01/14/2024, 06/10, 12/14/2019, Additional history exists Lipid Panel 12/30/2028 12/30/2023, 06/14/2020 RSV Patients and Patients Aged 60 years or older (1 - 1-dose 75+ series) 2041 Hepatitis B Vaccines Completed 07/29/2010, 01/04/2009, 08/19/2008 COVID-19 Vaccine Completed 01/04/2025, , 02/23/2021, Additional history exists Hepatitis A Vaccines Completed 01/04/2025, 12/30/19 Influenza Vaccine Completed 01/04/2025, , 09/03/2021 Pneumococcal Vaccine: 50+ Years Completed 01/04/2025, 06/14/2013 HIB Vaccines Aged Out No longer eligi [...] Procedure Name Priority Date/Time Associated Diagnosis Comments CBC WITH AUTO DIFFERENTIAL Routine 01/04/2025 11:17 AM EST Fatigue, unspecified type HEMOGLOBIN A1C Routine 01/04/2025 11:17 AM EST Screening for diabetes mellitus BI MAMMOGRAM SCREENING TOMOSYNTHESIS BILATERAL Routine 01/14/2024 10:25 AM EST LIPID PANEL WITH REFLEX TO DIRECT LDL Routine 12/30/2023 2:08 PM EST Postoperative hypothyroidism VERNA HISTORICAL HPV DNA, HIGH RISK, CERVICAL Routine 06/13/2020 12:00 AM EDT THINPREP PAP Routine 06/13/2020 12:00 AM EDT from Last 3 Months or Most Recently Relevant to Health Maintenance Results * (ABNORMAL) CBC auto differential (01/04/2025 11:17 AM EST) White Blood Count 6.7 4.8 - 10.8 X10*3/uL [facility] Red Blood Count 4.28 4.20 - 5.50 X10*6/uL [facility] Hemoglobin 13.6 12.0 - 16.0 g/dl [facility] Hematocrit 41.3 37.0 - 47.0 % [facility] Mean Corpuscular Volume 96.5 80.0 - 98.0 fL [facility] Mean Corpuscular Hemoglobin 31.8 27.0 - 33.0 pg [facility] Mean Corpuscular HGB Conc 32.9 31.0 - 35.0 g/dl [facility] Red Cell Distribution Width 12.7 11.0 - 16.0 % [facility] Platelet Count 259 160 - 400 X10*3/uL [facility] Mean Platelet Volume 9.5 9.4 - 12.3 fL [facility] Neutrophils Percent Auto 49.8 45 - 73 % [facility] Imm Gran Pct Auto 0.3 0.0 - 0.4 % [facility] Lymphocytes Percent Auto 41.0(H) 20 - 40 % [facility] Monocytes Percent Auto 4.9 2 - 11 % [facility] Eosinophils Percent Auto 3.3 0 - 4 % [facility] Basophils Percent Auto 0.7 0 - 2 % [facility] NRBC Pct Auto 0.0 0.0 - 0.2 /100WBC [facility] Neutrophils Absolute Auto 3.3 2.0 - 8.3 x10*3/uL [facility] Imm Gran Abs Auto 0.02 0.00 - 0.03 X10*3/uL [facility] Lymphocytes Absolute Auto 2.7 1.2 - 4.9 X10*3/uL [facility] Monocytes Absolute Auto 0.3 0.1 - 1.2 X10*3/uL [facility] Eosinophils Absolute Auto 0.2 0.0 - 0.4 X10*3/uL [facility] Basophils Absolute Auto 0.1 0.0 - 0.2 X10*3/uL [facility] NRBC Abs Auto 0.000 0.0 - 0.012 X10*3/uL [facility] Blood Venous blood specimen / Unknown 01/04/2025 11:17 AM EST 01/04/2025 1:08 PM EST us Jaci Stauffer MD LAB BLOOD ORDERABLES Final Resul t [facility] [address] [place] [phone] * Hemoglobin A1c (01/04/2025 11:17 AM EST) Hemoglobin A1c 5.0 <6.0 % [facility] Comment:Hemoglobin A1C Refer ence Range Adults: 4.8 - 6.0 % Non diabetic: < 6.0 % Goal: < 7.0 %Additional Action Suggested: > 8.0 %Note: Hemoglobin A1c results are invalid for patients with abnormal amounts of HbF. Blood transfusions may impact the HbA1c concentration in the patient sample. Estimated Average Glucose 97 mg/dL [facility] Comment:eAG = Estimated ave rage glucose which is %A1C expressed asaverage glucose, using the formula of the [id number] Glucose study (ADAG), Diabetes Care, Vol.31,#8,2007 Blood Venous blood specimen / Unknown 01/04/2025 11:17 AM EST 01/04/2025 1:08 PM EST us Jaci Stauffer MD LAB BLOOD ORDERABLES Final Resul t [facility] [address] [facility] [place] [phone] * BI Mammogram Screening Tomosynthesis Bilateral (01/14/2024 10:25 AM EST) Anatomical Region Laterality Modality Breast Bilateral Mammography 01/14/2024 10:2 5 AM EST Narrative 01/26/2024 4:55 AM EDT ? [facility] ? [address] ?[place] [phone] ? Mammography Report ? Signed ? Patient: Prema Shaver ?MR#: [id number] ?? [id number] ? : 1965 ?Acct:[id number] ? Age/Sex: 58 / F ?ADM Date: 01/14/24 ? Loc: HO.MAMMO ? Attending Dr: Jaci Stauffer MD ? Ordering Physician: Jaci Stauffer MD ?Results: 1Negative ? Date of Service: 01/14/24 ?Follow Up: 1 Year From Orig ?? inal Mammogram ? Procedure(s): MM tomosynthesis screening BI ?? Accession Number(s): [id number] ? cc: Jaci Stauffer MD ? EXAMINATION: [...] in OV> ? 01/26/24 0451 ? DD/ 1025 ? TD/TT: ? Appliquer Zigzag: ? Procedure Note Fran, Fox - 01/26/2024 [facility] [address] [place] [address] Dr. [place], [place] [id number] Mammography Report Signed Patient: Prema Shaver MMR#: [id number] : 1965Acct:[id number] Age/Sex: 58 / FADM Date: 01/14/24 Loc: JYOTSNA Attending Dr: Jaci Stauffer MD Ordering Physician: Jaci Staufferesults: 1Negative Date of Service: 01/14/24Follow Up: 1 Year From Orig inal Mammogram Procedure(s): MM tomosynthesis screening BI Accession Number(s): [id number] cc: Jaci Stauffer MD EXAMINATION: MM SCREENING [...] in OV> 01/26/24 0451 DD/ 1025 TD/TT: Appliquer Zigzag: Jaci Stauffer MD IM BI PROCEDURES Final Result * (ABNORMAL) Lipid Panel with Reflex to Direct LDL (12/30/2023 2:08 PM EST) Triglycerides 86 <150 mg/dL [facility] Comment:Desirable Triglyceri de: less than 150 mg/dLBorderline High Triglyceride 150-199 mg/dLHigh Triglyceride: 200-499 mg/dLVery High Triglyceride: greater than or equal to 5OO mg/dL Cholesterol 177 <200 mg/dL [facility] Comment:Desirable Cholestero l: less than 200 mg/dLBorderline High Cholesterol: 200-239 mg/dLHigh Cholesterol: greater than 239 mg/dL LDL Cholesterol Calculated 100(H) <100 mg/dL [facility] Comment:Desirable LDL: less than 100 mg/dLNear Optimal/Above Optimal LDL: 110- 129 mg/dLBorderline High LDL: 130-159 mg/dLHigh LDL: 160-189 mg/dLVery High LDL: greater than or equal to 190 mg/dL HDL Cholesterol 60 >40 mg/dL [facility] Comment:Desirable HDL: great er than 40 mg/dL Note: This HDL assay may give artificially low results in patients with liver disease. Blood 12/30/2023 2:08 PM EST 12/30/2023 4:04 PM EST Jaci Stauffer MD LAB BLOOD ORDERABLES Final Resul t Performing Organization Address City/[facility]/ZIP Co de Phone Number [facility] [address] [place] [address] [phone] * HPV DNA, HIGH RISK, CERVICAL (06/13/2020 12:00 AM EDT) HPV DNA, HIGH RISK, CERVICAL [facility] Comment: ?? Test not performed. The specimen was in an acceptable condition when received and a problem developed during handling. 06/13/2020 Jaci Stauffer MD HISTORICAL/NON ORDERABLE LABS Fi nal Result Performing Organization Address [facility] Co de Phone Number [facility] [address] * THINPREP PAP (06/13/2020 12:00 AM EDT) Clinical Information: SEE COMMENT [facility] Comment:None given COMMENT SEE COMMENT [...] historic and ?? current clinical information. ?? Retrieval Specialist: SEE COMMENT [facility] Comment: SXA, CT(ASCP) CT screening location: [address] ??[id number] Interpretation/Resu lt: SEE COMMENT [facility] [...] MD LAB PATHOLOGY ORDERABLES Final R esult [facility] [address] from Last 3 Months or Most Recently Relevant to Health Maintenance Insurance [facility] Care Teams Travel Accommodation Inspector Relationship Specialty Start Date End Date Jaci Stauffer MD [address] [place] [address] PCP - General Family Medicine 10/22/12
--- OUTSIDE RECORDS SUMMARY | 2025-01-04 13:45 | XMS_ITS | Encounter Summary ---
Author Organization [employer] Address [address] [place] [address] Care Team Providers Care Transition Social Worker Name Role Phone Jaci Stauffer MD Primary Care Provider [phone] Encounter Details Date Type Department Care Team (Latest Contact Info) Description 01/04/2025 Travel Social History Tobacco Use Types Packs/Day Years Used Date Smoking Tobacco: Every Day Cigarettes 1 42.2 Started: 1981 Smokeless Tobacco: Never Alcohol Use Standard Drinks/Week [...] as of this encounter Plan of Treatment Not on file documented as of this encounter Visit Diagnoses Not on filedocumented in this encounter Additional Health Concerns Assessment Noted Time PHQ-9 Depression Total Score: 0 01/04/20 10:21 AM EST documented as of this encounter Care Teams Transition Social Worker Relationship Specialty Start Date End Date Jaci Stauffer MD [address] [place] [phone] PCP - General Family Medicine 10/22/12 documented as of this encounter
--- OUTSIDE RECORDS SUMMARY | 2025-01-04 13:45 | XMS_ITS | Encounter Summary ---
Author Organization [employer] Address [address] [place] [address] Care Team Providers Care Coil Tier Name Role Phone Jaci Stauffer MD Primary Care Provider [phone] Encounter Details Date Type Department Care Team [...] documented as of this encounter Care Teams Coil Tier Relationship Specialty Start Date End Date Jaci Stauffer MD [address] [place] [phone] PCP - General Family Medicine 10/22/12 documented as of this encounter
--- OUTSIDE RECORDS SUMMARY | 2025-01-04 13:45 | XMS_ITS | Encounter Summary ---
Author Organization [employer] Address [address] [facility] [address] [facility] [address] [place] [address] Care Team Providers Care Supervisor Fruit Grading Name Role Phone Jaci Stauffer MD Primary Care Provider [phone] Reason for Visit * Reason Comments Pre-visit Planning Pre-visit planning - LVM Encounter Details Date Type Department Care Team (Late st Contact Info) Description 12/22/2024 Patient Outreach [facility] [address] [place] [address] Jaci Stauffer MD [address] [place] [address] Pre-visit Planning (Pre-visit planning - LVM ) [...] documented as of this encounter Care Teams Supervisor Fruit Grading Relationship Specialty Start Date End Date Jaci Stauffer MD [address] [place] [address] PCP - General Family Medicine 10/22/12 documented as of this encounter
--- OUTSIDE RECORDS SUMMARY | 2025-01-04 13:45 | XMS_ITS | Encounter Summary ---
Author Organization [email or web address] Address [address] [facility] [address] [place] [address] Care Team Providers Care Automatic Equipment Technician Name Role Phone Jaci Stauffer MD Primary Care Provider [phone] Encounter Details Date Type Department Care Team (Latest Contact Info) Description 01/04/2025 10:00 AM EST Office Visit [facility] [address] [place] [address] [phone] Jaci Stauffer MD [address] [place], [place] [phone] Routine general medical examination at a health [...] (sexually transmitted infection); Screening for colon cancer Social History Tobacco Use Types Packs/Day Years [...] your housing situation today? I have logan sravani 01/04/[address] you li [...] AM EDT documented as of this encounter Last Filed Vital Signs Vital Sign Reading [...] Mass Index 36.24 01/04/2025 10:21 AM EST documented in this encounter Miscellaneous Notes * Assessment & Plan Note - Jaci Stauffer MD - 01/03/2025 8:58 PM ESTAssociated Problem(s): Osteoarthritis of both knees - following with [facility] - last seen in November 2023 and received steroid injection to left knee (reported the effect of knee injection lasts about 9 months) - continue rest, ice, leg elevation, and APAP prn for discomfort documented in this encounter Plan of Treatment Scheduled Orders Name Type Priority Associated Diagnoses Orde r Schedule TSH with Reflex to Free T4 Lab Routine Postoperative hypothyroidism Graves' disease Expected: 01/04/2025 (Approximate), Expires: 01/04/2026 Comprehensive Metabolic Panel Lab Routine Paroxysmal atrial flutter (CMS/HCC) Expected: 01/04/2025 (Approximate), Expires: 01/04/2026 Lipid Panel with Reflex to Direct LDL Lab Routine Paroxysmal atrial flutter (CMS/HCC) Expected: 01/04/2025 (Approximate), Expires: 01/04/2026 Albumin, Random Urine W/Creatinine Lab Routine Paroxysmal atrial flutter (CMS/HCC) Expected: 01/04/2025 (Approximate), Expires: 01/04/2026 Vitamin D, 25-Hydroxy, Total, Immunoassay Lab Routine Vitamin D deficiency Expected: 01/04/2025 (Approximate), Expires: 01/04/2026 Hepatitis C Antibody with Reflex to HCV, RNA, Quantitative, Real-Time PCR Lab Routine Routine screening for STI (sexually transmitted infection) Expected: 01/04/2025 (Approximate), Expires: 01/04/2026 HIV-1/2 Antigen and Antibodies, Fourth Generation, with Reflexes Lab Routine Routine screening for STI (sexually transmitted infection) Expected: 01/04/2025 (Approximate), Expires: 01/04/2026 Cologuard?? colon cancer screening Lab Routine Screening for colon cancer Ordered: 01/04/2025 documented as of this encounter Procedures Procedure Name Priority Date/Time Associated Diagnosis Comments CBC WITH AUTO DIFFERENTIAL Routine 01/04/2025 11:17 AM EST Fatigue, unspecified type HEMOGLOBIN A1C Routine 01/04/2025 11:17 AM EST Screening for diabetes mellitus documented in this encounter Results * (ABNORMAL) CBC auto differential (01/04/2025 11:17 AM EST) White Blood Count 6.7 4.8 - 10.8 X10*3/uL [facility] Red Blood Count 4.28 4.20 - 5.50 X10*6/uL [facility] Hemoglobin 13.6 12.0 - 16.0 g/dl [facility] Hematocrit 41.3 37.0 - 47.0 % [facility] Mean Corpuscular Volume 96.5 80.0 - 98.0 fL [facility] Mean Corpuscular Hemoglobin 31.8 27.0 - 33.0 pg [facility] Mean Corpuscular HGB Conc 32.9 31.0 - 35.0 g/dl [facility] Red Cell Distribution Width 12.7 11.0 - 16.0 % [facility] Platelet Count 259 160 - 400 X10*3/uL [facility] Mean Platelet Volume 9.5 9.4 - 12.3 fL [facility] Neutrophils Percent Auto 49.8 45 - 73 % [facility] Imm Gran Pct Auto 0.3 0.0 - 0.4 % [facility] Lymphocytes Percent Auto 41.0(H) 20 - 40 % [facility] Monocytes Percent Auto 4.9 2 - 11 % [facility] Eosinophils Percent Auto 3.3 0 - 4 % [facility] Basophils Percent Auto 0.7 0 - 2 % [facility] NRBC Pct Auto 0.0 0.0 - 0.2 /100WBC [facility] Neutrophils Absolute Auto 3.3 2.0 - 8.3 x10*3/uL [facility] Imm Gran Abs Auto 0.02 0.00 - 0.03 X10*3/uL [facility] Lymphocytes Absolute Auto 2.7 1.2 - 4.9 X10*3/uL [facility] Monocytes Absolute Auto 0.3 0.1 - 1.2 X10*3/uL [facility] Eosinophils Absolute Auto 0.2 0.0 - 0.4 X10*3/uL [facility] Basophils Absolute Auto 0.1 0.0 - 0.2 X10*3/uL [facility] NRBC Abs Auto 0.000 0.0 - 0.012 X10*3/uL [facility] Blood Venous blood specimen / Unknown 01/04/2025 11:17 AM EST 01/04/2025 1:08 PM EST Jaci Stauffer MD LAB BLOOD ORDERABLES Final Resul t [facility] [address] [place] [phone] * Hemoglobin A1c (01/04/2025 11:17 AM EST) Hemoglobin A1c 5.0 <6.0 % [facility] Comment:Hemoglobin A1C Refer ence Range Adults: 4.8 - 6.0 % Non diabetic: < 6.0 % Goal: < 7.0 %Additional Action Suggested: > 8.0 %Note: Hemoglobin A1c results are invalid for patients with abnormal amounts of HbF. Blood transfusions may impact the HbA1c concentration in the patient sample. Estimated Average Glucose 97 mg/dL [facility] Comment:eAG = Estimated ave rage glucose which is %A1C expressed asaverage glucose, using the formula of the C3Y-OlcbokvFfkxujj Glucose study (ADAG), Diabetes Care, Vol.31,#8,Jun. 2007 Blood Venous blood specimen / Unknown 01/04/2025 11:17 AM EST 01/04/2025 1:08 PM EST Jaci Stauffer MD LAB BLOOD ORDERABLES Final Resul t [facility] [address] [place] [phone] documented in this encounter Visit Diagnoses Diagnosis Routine general medical examination at a health care facility- Primary Chronic nonintractable headache, unspecified headache type Paroxysmal atrial flutter (CMS/HCC) Primary osteoarthritis of both knees Lumbar spondylosis Lumbosacral spondylosis without myelopathy Vitamin D deficiency Postoperative hypothyroidism Postsurgical hypothyroidism Graves' disease Toxic diffuse goiter without mention of thyrotoxic crisis or storm Tobacco dependence syndrome Tobacco use disorder Mood disorder (CMS/HCC) Unspecified episodic mood disorder Migraine without status migrainosus, not intractable, unspecified migraine type Chronic recurrent major depressive disorder (CMS/HCC) Major depressive disorder, recurrent episode, unspecified Allergic rhinitis, unspecified seasonality, unspecified trigger Low back pain with radiation Fatigue, unspecified type Encounter for immunization Screening for diabetes mellitus Routine screening for STI (sexually transmitted infection) Screening examination for venereal disease Screening for colon cancer Special screening for malignant neoplasms, colon documented in this encounter Additional Health Concerns Assessment Noted Time PHQ-9 Depression Total Score: 0 01/04/20 25 10:21 AM EST documented as of this encounter Care Teams Automatic Equipment Technician Relationship Specialty Start Date End Date Jaci Stauffer MD [address] [place] [phone] PCP - General Family Medicine 10/22/12 documented as of this encounter
--- OUTSIDE RECORDS SUMMARY | 2025-01-04 13:45 | XMS_ITS | Encounter Summary ---
Author Organization [employer] Address [address] [place] [address] Care Team Providers Care Piece Dyeing Machine Tender Name Role Phone Jaci Stauffer MD Primary Care Provider [phone] Reason for Visit * Reason Onset Date Comments Med Refill 09/13/2024 Encounter Details Date Type Department Care Team (Late st Contact Info) Description 09/13/2024 Telephone [facility] [address] [place] [address] Jaci Stauffer MD [address] [place] [address] Med Refill Social History Tobacco Use Types [...] documented as of this encounter Care Teams Piece Dyeing Machine Tender Relationship Specialty Start Date End Date Jaci Stauffer MD [address] [place] [address] PCP - General Family Medicine 10/22/12 documented as of this encounter
[2025-01-04 13:53] LABS: Alanine Aminotransferase 13 U/L (0-31); Albumin Level 4.2 g/dL (3.5-5.0); Alkaline Phosphatase 49 U/L (39-117); Anion Gap 10 (12-20); Aspartate Amino Transferase 18 U/L (5-31); Bilirubin Total 0.4 mg/dL (0.0-1.0); Blood Urea Nitrogen 21 mg/dL (9-16); Calcium 9.6 mg/dL (8.4-10.2); Carbon Dioxide 24 mmol/L (22-29); Chloride 111 mmol/L (96-108); Cholesterol 175 mg/dL (<200); Estimated Glomerular Filt Rate > 60; Glucose Random 95 mg/dL (60-115); HDL Cholesterol 62 mg/dL (>40); LDL Cholesterol Calculated 94 mg/dL (<100); Potassium 4.3 mmol/L (3.3-5.1); Sodium 141 mmol/L (135-145); TSH reflex Free T4 0.31 uIU/mL (0.32-4.0); Triglycerides 96 mg/dL (<150)
[2025-01-04 15:53] LABS: Reflex LDLD? No
[2025-01-05 08:43] LABS: HIV AB/AG Nonreactive (Nonreactive); HIV Num 1 0.32 S/CO (0.00-0.99); ~HepC Num1 0.27 S/CO (0.00-0.79); ~Hepatitis C Antibody Nonreactive (Nonreactive)
== END 2025-01-04 11:15 | disposition home or self-care (01) ==
LOC: HO.HHCL 11:14
PROVIDERS: Visit Provider Family Medicine
DX: I48.92 Unspecified atrial flutter (principal); Z11.3 Encounter for screening for infections with a predominantly sexual mode of transmission; E89.0 Postprocedural hypothyroidism; E05.00 Thyrotoxicosis with diffuse goiter without thyrotoxic crisis or storm; R53.83 Other fatigue; Z13.1 Encounter for screening for diabetes mellitus; E55.9 Vitamin D deficiency, unspecified
CPT/HCPCS: 36415; 80053; 80061; 82306; 83036; 84439; 84443; 85025; 86803; 87389

== ENCOUNTER 2025-01-17 09:12 | Outpatient (REF) | payer MEDICAID, SELFPAY ==
--- NOTE | ~2025-01-17 | XR_ITS ---
EXAMINATION: XR KNEE, LEFT CLINICAL INFORMATION: M25.562 - Pain in left knee COMPARISON: 07/14/2020. TECHNIQUE: AP view bilateral knees standing, lateral and patellofemoral views left knee. FINDINGS: Right Knee: Severe lateral compartment narrowing with widening of the medial compartment, and valgus angulation of the joint. No acute bony abnormalities. Normal soft tissues. Left Knee: No fracture, dislocation, or suspicious bone lesion. Severe lateral compartment osteoarthrosis with [id number] appearance, subchondral sclerosis, cystic changes, and marginal osteophytic spurs. There is compensatory widening of the medial compartment with valgus angulation of the joint. Moderate to severe osteoarthrosis in the patellofemoral compartment. No definite joint effusion. Normal soft tissues. XR/XR knee LT 3V IMPRESSION: 1. Severe tricompartmental osteoarthrosis of the left knee, most significant lateral compartment as described. Electronically signed by: Dar Menon MD 01/18/2025 09:10 AM EDT
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
--- OUTSIDE RECORDS SUMMARY | 2025-01-17 09:51 | XMS_ITS | Encounter Summary ---
Author Organization [employer] Address [address] [place] [address] Care Team Providers Care Jailor Name Role Phone Jaci Stauffer MD Primary Care Provider [phone] Encounter Details Date Type Department Care Team [...] documented as of this encounter Care Teams Jailor Relationship Specialty Start Date End Date Jaci Stauffer MD [address] [place] [id number] PCP - General Family Medicine 10/22/12 documented as of this encounter
--- OUTSIDE RECORDS SUMMARY | 2025-01-17 09:51 | XMS_ITS | Encounter Summary ---
Author Organization [employer] Address [address] [place] [address] Care Team Providers Care Vegetable Harvest Worker Name Role Phone Jaci Stauffer MD Primary Care Provider [phone] Reason for Visit * Reason Onset Date Comments Med Refill 01/10/2025 Encounter Details Date Type Department Care Team (Late st Contact Info) Description 01/10/2025 Refill [facility] [address] [place] [address] Jaci Stauffer MD [address] [place] [address] Social History Tobacco Use Types Packs/Day Years [...] Telephone Encounter - Misty Cooley LPN - 01/10/2025 3:12 PM EST Last seen 01/04/25. * Telephone Encounter - Stefania García - 01/10/2025 3:00 PM EST TC from pt requesting medication refill. Medications needing refill : cyclobenzaprine (Flexeril) 10 MG tablet To be sent to: [facility] documented in this encounter Plan of Treatment Not on file documented as of this encounter Visit Diagnoses Not on filedocumented in this encounter Additional Health Concerns Assessment Noted Time PHQ-9 Depression Total Score: 0 01/05/20 2:40 PM EST documented as of this encounter Care Teams Vegetable Harvest Worker Relationship Specialty Start Date End Date Jaci Stauffer MD [address] [place] [address] PCP - General Family Medicine 10/22/12 documented as of this encounter
--- OUTSIDE RECORDS SUMMARY | 2025-01-17 09:51 | XMS_ITS | Encounter Summary ---
Author Organization [employer] Address [address] [place] [address] Care Team Providers Care Lead Scientist Name Role Phone Jaci Stauffer MD Primary Care Provider [phone] Reason for Visit * Reason Onset Date Comments lung screening 01/05/2025 Encounter Details Date Type Department Care Team (Late st Contact Info) Description 01/05/2025 Telephone [facility]INE [address] [place] [address] Verna Feliciano MA lung screening Social History Tobacco Use Types Packs/Day Years [...] encounter Miscellaneous Notes * Telephone Encounter - Verna Feliciano MA - 01/05/2025 2:44 PM EST Nancy faxed lung [place] [facility] documented in this encounter Plan of Treatment Not on file documented as of this encounter Visit Diagnoses Not on filedocumented in this encounter Additional Health Concerns Assessment Noted Time PHQ-9 Depression Total Score: 0 01/05/20 2:40 PM EST documented as of this encounter Care Teams Lead Scientist Relationship Specialty Start Date End Date Jaci Stauffer MD [address] [place] [address] PCP - General Family Medicine 10/22/12 documented as of this encounter
--- OUTSIDE RECORDS SUMMARY | 2025-01-17 09:51 | XMS_ITS | Encounter Summary ---
Author Organization [employer] Address [address] [place] [address] Care Team Providers Care Embedded Nurse Name Role Phone Jaci Stauffer MD Primary Care Provider [phone] Reason for Visit * Reason Onset Date Comments Chart Prep 12/29/2024 Encounter Details Date Type Department Care Team ([facility] st Contact Info) Description 12/29/2024 Telephone [facility] [address] [place] [address] Jaci Stauffer MD [address] [place] [address] Chart Prep Social History Tobacco Use Types [...] the past 12 months, has t he [employer] or [employer] company threatened to [...] documented as of this encounter Care Teams Embedded Nurse Relationship Specialty Start Date End Date Jaci Stauffer MD [address] [place] [id number] PCP - General Family Medicine 10/22/12 documented as of this encounter
--- OUTSIDE RECORDS SUMMARY | 2025-01-17 09:51 | XMS_ITS | Encounter Summary ---
Author Organization [employer] Address [address] [place] [address] Care Team Providers Care Search Engine Marketing Specialist Name Role Phone Jaci Stauffer MD Primary Care Provider [phone] Reason for Visit * Reason Comments Med Refill Encounter Details Date Type Department Care Team ([facility] st Contact Info) Description 01/12/2025 Refill [facility]INE [address] [place] [address] Jaci Stauffer MD [address] [place] [address] Social History Tobacco Use Types Packs/Day Years [...] documented as of this encounter Care Teams Search Engine Marketing Specialist Relationship Specialty Start Date End Date Jaci Stauffer MD [address] [place] [address] PCP - General Family Medicine 10/22/12 documented as of this encounter
--- OUTSIDE RECORDS SUMMARY | 2025-01-17 09:51 | XMS_ITS | Encounter Summary ---
Author Organization [employer] Address [address] [place] [address] Care Team Providers Care Veneer Sorter Name Role Phone Jaci Stauffer MD Primary Care Provider [phone] Reason for Visit * Reason Onset Date Comments Med Refill 09/13/2024 Encounter Details Date Type Department Care Team (Late st Contact Info) Description 09/13/2024 Telephone [facility] MEDICINE [address] [place] [address] Jaci Stauffer MD [address] [place] [address] Med Refill Social History Tobacco Use Types [...] documented as of this encounter Care Teams Veneer Sorter Relationship Specialty Start Date End Date Jaci Stauffer MD [address] [place] [address] PCP - General Family Medicine 10/22/12 documented as of this encounter
--- OUTSIDE RECORDS SUMMARY | 2025-01-17 09:51 | XMS_ITS | Encounter Summary ---
Author Organization [email or web address] Address [address] [place] [address] Care Team Providers Care Aircraft Engine Mechanic Supervisor Name Role Phone Jaci Stauffer MD Primary Care Provider [phone] Reason for Visit * Reason Onset Date Comments Results 01/04/2025 Medication Question 01/04/2025 Encounter Details Date Type Department Care Team ([facility] st Contact Info) Description 01/04/2025 Telephone [facility] [address] [place] [address] Jaci Stauffer MD [address] [place], [place] [id number] Results; Medication Question Social History Tobacco Use Types Packs/Day Years [...] encounter Miscellaneous Notes * Telephone Encounter - Yanique Tiwair RN - 01/04/2025 6:10 PM EST Telephone call to pt to relay below results. Advised that blood sugar, cholesterol, vitamin D level, kidney function, and liver function were all normal and there is no anemia. Advised pt that 1 thyroid lab was very slightly abnormal and 1 lab was normal. Explained that per PCP, pt could modify thedose of levothyroxine and recheck labs in 6 wks or she can keep current dose and recheck labs in 2-3 weeks. Pt stated she prefers to recheck levels in 2-3 weeks (January 18-), advised she can go to [facility] lab for this. Pt verbalized understanding, no further questions. * Telephone Encounter - Yanique Tiwari RN - 01/04/2025 6:07 PM EST ----- Message from Jaci Stauffer MD sent at 01/04/2025 5:41 PM EST ----- Please inform patient that her TSH was very slightly abnormal, but free T4 was normal. Since she was feeling tired, we can adjust her levothyroxine to 162 mcg daily (and recheck lab in 6 weeks) or wecan repeat test again in 2-3 weeks if it is truly abnormal. If she elects to decrease levothyroxinedose, please send me med refill for levothyroxine 163 mcg daily and order TSH reflex to free T4. Ple ase inform her her blood sugar, cholesterol, vitamin D level, kidney function, and liver function were normal. No anemia. Thank you documented in this encounter Plan of Treatment Not on file documented as of this encounter Visit Diagnoses Diagnosis Graves' disease Toxic diffuse goiter without mention of thyrotoxic crisis or storm Postoperative hypothyroidism Postsurgical hypothyroidism documented in this encounter Additional Health Concerns Assessment Noted Time PHQ-9 Depression Total Score: 0 01/04/20 25 10:21 AM EST documented as of this encounter Care Teams Aircraft Engine Mechanic Supervisor Relationship Specialty Start Date End Date Jaci Stauffer MD [address] [place] [address] PCP - General Family Medicine 10/22/12 documented as of this encounter
--- OUTSIDE RECORDS SUMMARY | 2025-01-17 09:51 | XMS_ITS | Encounter Summary ---
Author Organization [employer] Address [address] [place] [address] Care Team Providers Care [employer] Name Role Phone Jaci Stauffer MD Primary Care Provider [phone] Encounter Details Date Type Department Care Team [...] documented as of this encounter Care Teams [employer] Relationship Specialty Start Date End Date Jaci Stauffer MD [address] [place] [address] PCP - General Family Medicine 10/22/12 documented as of this encounter
--- OUTSIDE RECORDS SUMMARY | 2025-01-17 09:51 | XMS_ITS | Encounter Summary ---
Author Organization [employer] Address [address] [place] [address] Care Team Providers Care Photoengraving Sketch Maker Name Role Phone Jaci Stauffer MD Primary Care Provider [phone] Reason for Visit * Reason Comments Pre-visit Planning Pre-visit planning - LVM Encounter Details Date Type Department Care Team (Late st Contact Info) Description 12/22/2024 Patient Outreach [facility]INE [address] [place] [address] Jaci Stauffer MD [address] [place] [address] Pre-visit Planning (Pre-visit planning - LVM ) [...] documented as of this encounter Care Teams Photoengraving Sketch Maker Relationship Specialty Start Date End Date Jaci Stauffer MD [address] [place] [address] PCP - General Family Medicine 10/22/12 documented as of this encounter
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
--- OUTSIDE RECORDS SUMMARY | 2025-01-17 09:51 | XMS_ITS | Encounter Summary ---
Author Organization [employer] Address [address] [place] [address] Care Team Providers Care Trailer Truck Driver Name Role Phone Jaci Stauffer MD Primary Care Provider [phone] Encounter Details Date Type Department Care Team ([facility] st Contact Info) Description 01/04/2025 Orders Only [facility] MEDICINE [address] [place] [address] Jaci Stauffer MD [address] [place] [address] Postoperative hypothyroidism (Primary Dx) Social History Tobacco Use Types Packs/Day Years [...] as of this encounter Plan of Treatment Scheduled Orders Name Type Priority Associated Diagnoses Orde r Schedule TSH with Reflex to Free T4 Lab Routine Postoperative hypothyroidism Expected: 01/04/2025 (Approximate), Expires: 01/04/2026 documented as of this encounter Visit Diagnoses Diagnosis Postoperative hypothyroidism- Primary Postsurgical hypothyroidism documented in this encounter Additional Health Concerns Assessment Noted Time PHQ-9 Depression Total Score: 0 01/04/20 10:21 AM EST documented as of this encounter Care Teams Trailer Truck Driver Relationship Specialty Start Date End Date Jaci Stauffer MD [address] [place] [id number] PCP - General Family Medicine 10/22/12 documented as of this encounter
== END 2025-01-17 09:13 | disposition home or self-care (01) ==
LOC: HO.HOSX 09:12
PROVIDERS: Visit Provider Physician Assistant
DX: M25.562 Pain in left knee (principal); M17.12 Unilateral primary osteoarthritis, left knee
CPT/HCPCS: 20610; 73562; 99212; J1010; J2003

== ENCOUNTER 2025-01-17 10:20 | Outpatient (AMB) | payer MEDICAID, SELFPAY ==
[2025-01-17 10:29] VITALS: BMI 37.3
--- NOTE | 2025-01-17 10:29 | A.OFFVIS_ITS ---
Vital Signs 01/17/25 10:29 Height 5 ft 7 in Weight 238 lb BMI 37.3 Intake Visit Reasons: OV-Left knee OA-follow up Intake Note: Prema a 59 year old female who presents today for a follow up of left knee OA, last injection on 08/17/2024. X-rays updated. Patient reports having soreness in her knee. States last injection provided her with relief until December. She would like to repeat injection. Allergies hydrocodone [From VICODIN] Allergy (Severe, Verified 01/17/25 10:42) ANAPHYLAXIS morphine [MORPHINE] Allergy (Severe, Verified 01/17/25 10:42) ANAPHYLAXIS aspirin [Aspirin] Allergy (Mild, Verified 01/17/25 10:42) SOB/RASH banana [Banana] Allergy (Mild, Verified 01/17/25 10:42) THROAT SWELLING Penicillins Allergy (Mild, Verified 01/17/25 10:42) RASH oxycodone [From Percocet] Allergy (Unknown, Verified 01/17/25 10:42) unknown Sulfa (Sulfonamide Antibiotics) Allergy (Unknown, Verified 01/17/25 10:42) Unknown Medication List - Last Reconciled 01/17/25 by Laura Hurd PA-C aripiprazole (Abilify) 15 mg PO DAILY cholecalciferol (vitamin D3) 25 mcg PO DAILY 30 days clonazepam 1 mg PO DAILY cyclobenzaprine 10 mg PO BEDTIME ibuprofen 400 mg PO Q8H levothyroxine 175 mcg PO DAILY 30 days loratadine 10 mg PO DAILY metoprolol tartrate 25 mg PO BID topiramate (Topamax) 25 mg PO BID trazodone 75 mg PO DAILY HPI HPI OV-Left knee OA-follow up: Details: 59-year-old female returns to the office today for a follow-up left knee pain. She states the injections have been significantly helpful and allow her to increase her activities without pain. [facility] Medical History Cardiomyopathy Graves disease History of cardiomyopathy Paroxysmal atrial flutter Postoperative hypothyroidism Vitamin D deficiency Surgical History Hx of thyroidectomy History of bunionectomy Family History Father No problems noted. Mother No problems noted. Social History Alcohol intake: current Alcohol intake frequency: does not drink Cigarette Packs Per Day: 0.5 Cigarettes Per Day: 10 Advance Directives Date on File: 08/23/20 Review of Systems Const All systems reviewed & are unremarkable except as noted in HPI and below Physical Exam Vital Signs: BMI result Body Mass Index 37.3 Extrem Other: Left knee: Skin intact, no erythema or joint effusion. Tenderness along the medial and lateral joint line. Full ROM with crepitus. Negative Lorraine?s. No ligamentous laxity. NVI. Office Procedures AMB Joint Injection/Aspiration Joint Injection/Aspiration Primary Site: left knee Prep: site was prepped using aseptic technique, ethochloride spray was applied and injection warnings given Injected: 80 mg of, DepoMedrol, with 8 mL of, 1% plain lidocaine and in the joint Approach Used: anterolateral Procedure: The patient tolerated the procedure well and there was some relief with the local anesthesia Coding 92682 - Glenohumeral/Tronchanteric Bursa/Intraarticular Procedure code (CPT) selection complete Results Reviewed Results Reviewed: X-rays of the left knee obtained in the office today and reviewed by me show end-stage osteoarthritis with valgus deformity. Assessment & Plan Assessment & Plan (1) Osteoarthritis of left knee: Code(s): M17.12 - Unilateral primary osteoarthritis, left knee Category: Medical Qualifiers: Osteoarthritis type: primary Qualified Code(s): M17.12 - Unilateral primary osteoarthritis, left knee Plan We discussed options today, which include steroid injection. The patient did consent to move forward with the injection, which was tolerated well.? I recommended rest, ice and elevation and OTC antiinflammatories prn for discomfort. If symptoms persist over the next 6-8 weeks, they will contact our office, otherwise, prn Orders: Orders XR knee LT 3V Today M25.562 - Pain in left knee XR knee RT 1V Today M25.561 - Pain in right knee Coding Level of Care Code Est Pt Level 3 (04396) Complex EM visit Add On G2211 Diagnoses Primary osteoarthritis of left knee M17.12 Osteoarthritis type: primary CPT Codes Coding - Joint 7: 51733 - Glenohumeral/Tronchanteric Bursa/Intraarticular ([id number])
== END 2025-01-17 13:16 | disposition home or self-care (01) ==
PROVIDERS: PCP Family Medicine; Visit Provider Physician Assistant
DX: M17.12 Unilateral primary osteoarthritis, left knee (principal)
CPT/HCPCS: 20610; 99213

== ENCOUNTER → 2025-01-17 10:26 | Outpatient (BNV) | payer MEDICAID, SELFPAY | PROVIDERS: Visit Provider Radiology Diagnostic Radiology | DX: M17.12 Unilateral primary osteoarthritis, left knee (principal) | CPT/HCPCS: 73562 ==

== ENCOUNTER 2025-02-24 10:06 | Outpatient (REF) | payer MEDICAID, SELFPAY ==
--- OUTSIDE RECORDS SUMMARY | 2025-02-24 11:55 | XMS_ITS | Encounter Summary ---
Author Organization [employer] Address [address] [place] [address] Care Team Providers Care Non Licensed Nuclear Equipment Operator Name Role Phone Jaci Stauffer MD Primary Care Provider Encounter Details Date Type Department Care Team ([facility] st Contact Info) Description 01/04/2025 Orders Only [facility] MEDICINE [address] [place] [address] Jaci Stauffer MD [address] [place] [address] Postoperative hypothyroidism (Primary Dx) Social History Tobacco Use Types Packs/Day Years Used Date Smoking Tobacco: Every Day Cigarettes 1 42.3 Started: 1982 Smokeless Tobacco: Never Alcohol Use [...] documented as of this encounter Care Teams Non Licensed Nuclear Equipment Operator Relationship Specialty Start Date End Date Jaci Stauffer MD [address] [place] [id number] PCP - General Family Medicine 10/22/12 documented as of this encounter
--- OUTSIDE RECORDS SUMMARY | 2025-02-24 11:55 | XMS_ITS | Encounter Summary ---
Author Organization [employer] Address [address] [place] [address] Care Team Providers Care Building Operator Name Role Phone Jaci Stauffer MD Primary Care Provider [phone] Reason for Visit * Reason Comments Med Refill Encounter Details Date Type Department Care Team ([facility] st Contact Info) Description 01/12/2025 Refill [facility] MEDICINE [address] [place] [address] Jaci Stauffer MD [address] [place] [address] Social History Tobacco Use Types Packs/Day Years [...] documented as of this encounter Care Teams Building Operator Relationship Specialty Start Date End Date Jaci Stauffer MD [address] [place] [id number] PCP - General Family Medicine 10/22/12 documented as of this encounter
--- OUTSIDE RECORDS SUMMARY | 2025-02-24 11:55 | XMS_ITS | Encounter Summary ---
Author Organization [employer] Address [address] [place] [address] Care Team Providers Care Acquisitions Logistics Analyst Name Role Phone Jaci Stauffer MD Primary Care Provider [phone] Reason for Visit * Reason Onset Date Comments Med Refill 09/13/2024 Encounter Details Date Type Department Care Team (Late st Contact Info) Description 09/13/2024 Telephone [facility] MEDICINE [address] [place] [address] Jaci Stauffer MD [address] [place] [address] Med Refill Social History Tobacco Use Types [...] documented as of this encounter Care Teams Acquisitions Logistics Analyst Relationship Specialty Start Date End Date Jaci Stauffer MD [address] [place] [address] PCP - General Family Medicine 10/22/12 documented as of this encounter
--- OUTSIDE RECORDS SUMMARY | 2025-02-24 11:55 | XMS_ITS | Clinical Summary ---
Author Organization [employer] Address [address] [facility] [address] [place] [address] Care Team Providers Care Personal Companion Name Role Phone Jaci Stauffer MD Primary Care Provider [phone] Allergies Active Allergy Reactions Criticality Noted Date [...] MORNING. 90 tablet 1 09/14/20 24 Active traZODone [...] for smoking cessation. 100 lozenge 01/04/20 25 Active cyclobenzaprine (Flexeril) 10 MG tablet TAKE 1 TABLET BY MOUTH AT BEDTIME IF NEEDED 30 tablet 3 01/11/20 25 Active loratadine (Claritin) 10 MG tabletIndicatio ns:Allergic rhinitis, unspecified seasonality, unspecified trigger TAKE ONE TABLET BY MOUTH EVERY MORNING 90 tablet 02/12/20 25 Active loratadine (Claritin) 10 MG tabletIndicatio ns:Allergic rhinitis, unspecified seasonality, unspecified trigger TAKE 1 TABLET BY MOUTH EVERY MORNING 90 tablet 1 09/14/20 24 025 Discontinued Active Problems Problem Noted Date Diagnosed Date Low back pain with radiation 12/29/2024 Vitamin D deficiency 01/03/2024 Assessment & Plan (01/05/2025 12:19 AM EST): - continue vitamin D supplementation Assessment & Plan (01/03/2024 7:21 AM EST): - continue vitamin D supplementation Graves' disease 11/19/2023 11/19/2023 Assessment & Plan (01/05/2025 12:19 AM EST): 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 s/p thyroidectomy 08/28/21 Assessment & Plan (12/29/2023 2:35 PM EST): 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 s/p thyroidectomy 08/28/21 Assessment & Plan (11/19/2023 4:57 PM EST): Tape Recorder Repairer: [facility] seen in May 2022 No longer [...] (01/05/2025 12:18 AM EST): Dx: March 2016. Environmental Conflict Manager: [place]. Brewer at [facility] [place], last seen in Nov 2022 -last TTE 04/29/22: showed nml EF 60-65%. -last holter monitor 04/29/22, nml -Current medications: metoprolol 25 mg bid Treatment Hx: Amiodarone discontinued in 2017, Eliquis discontinued in February 2019 Continue current treatment plan. Assessment & Plan (12/29/2023 2:30 PM EST): Dx: March 2016. Environmental Conflict Manager: [place]. Brewer at [facility] [place] last seen in Nov 2022 -last TTE 04/29/22: showed nml EF 60-65%. -last holter monitor 04/29/22, nml -Current medications: metoprolol 25 mg bid Treatment Hx: Amiodarone discontinued in 2018, Eliquis discontinued in February 2019 Continue current treatment plan. Assessment & Plan (11/19/2023 4:54 PM EST): Dx: March 2016. Environmental Conflict Manager: Dr. Brewer at [facility] [place], last seen in Nov 2022 -last [...] (01/03/2025 8:58 PM EST): - following with [facility] - last seen in November 2023 and received steroid injection to left knee (reported the effect of knee injection lasts about 9 months) - continue rest, ice, leg elevation, and APAP prn for discomfort Assessment & Plan (12/29/2023 2:34 PM EST): - following with [facility] - last seen in November 2023 and received steroid injection to left knee (reported the effect of knee injection lasts about 9 months) - continue rest, ice, leg elevation, and APAP prn for discomfort Assessment & Plan (11/19/2023 5:01 PM EST): - following with [facility] - last seen in Jul 2022 [...] relaxant -consider referring to pain management at [facility] Assessment & Plan (01/03/2024 7:21 AM EST): -continue judicious use of APAP and muscle relaxant -consider referring to pain management at [facility] Mood disorder 03/11/2013 11/19/2023 Assessment & Plan (01/05/2025 12:20 AM EST): - MDD - behavioral health service provider: [facility] Assessment & Plan (12/29/2023 2:41 PM EST): - MDD - behavioral health service provider: [facility] Obesity 03/11/2013 11/19/2023 Assessment & Plan (01/03/2024 7:16 AM EST): - continue working on lifestyle modifications - sleep study in May 2017 showed no WILLIAMS Encounters Date Type Department Care Team Description 02/10/2025 Refill [facility] [place] [address] Jaci Stauffer MD Allergic rhinitis, unspecified seasonality, unspecified trigger 01/21/2025 Population Health Risk Score [facility] Department [address] [phone] Provider, Population Health Generic 01/18/2025 Orders Only [facility] [place] [address] Jaci Stauffer MD 01/12/2025 Refill [facility] [place] [address] Jaci Stauffer MD 01/10/2025 Refill [facility] [place] [address] Jaci Stauffer MD 01/05/2025 Telephone [facility] [place] [address] Verna Feliciano MA lung screening 01/04/2025 10:00 AM EST Office Visit [facility] [place] [address] Jaci Stauffer MD Routine general medical examination [...] Screening for colon cancer 01/04/2025 Orders Only [facility] [place] [phone] Jaci Stauffer MD Postoperative hypothyroidism (Primary Dx) 01/04/2025 Telephone [facility] [address] [place], [place] [phone] Jaci Stauffer MD Results; Medication Question 01/04/2025 Travel 12/29/[address] [facility] [address] [place] [address] Jaci Stauffer MD Chart Prep 12/28/2024 Travel 12/22/[address] [facility] [address] [place] [address] Jaci Stauffer MD Pre-visit Planning (Pre-visit planning - LVM ) from Last 3 Months Immunizations Name Administration [...] 1 42.3 Started: 1982 Smokeless Tobacco: Never Tobacco Cessation:Ready [...] your housing situation today? I have logan sing 01/04/[address] you li [...] Done Comments CT Colonography 1965 Colonoscopy 1965 FIT 1966 FOBT 1965 Sigmoidoscopy 1965 Lung Cancer Screening 2016 Zoster Vaccines (1 of 2) 2016 Cervical Cancer Screening 06/13/2023 HPV/Cotest 06/13/2023 06/13/2020, 05/24/2019 Pap Smear 06/13/2023 06/13/2020 DTaP/Tdap/Td Vaccines (4 - Td or Tdap) 08/01/2025 08/01/2015, 06/14/2013, 06/27/2006 Alcohol/Substance Use Screening 01/04/2026 01/04/2025 SDOH Screening 01/04/2026 01/04/2025 Tobacco Screening 01/04/2026 01/04/2025 Depression Screening 01/05/2026 01/05/2025, 01/05/20 Mammogram 01/13/2026 01/14/2024, 06/10, 12/14/2019, Additional history exists Colorectal Cancer Screening 01/28/2028 FIT DNA/Cologuard 01/28/2028 01/27/2025 Lipid Panel 01/04/2030 01/04/2025, 12/12, 06/14/2020 RSV Patients and Patients Aged 60 years or older (1 - 1-dose 75+ series) 2041 Hepatitis B Vaccines Completed 07/29/2010, 01/04/2009, 08/19/2008 COVID-19 Vaccine Completed 01/04/2025, , 02/23/2021, Additional history exists HIV Screening Completed 01/04/2025 Hepatitis A Vaccines Aged Out 01/04/2025, 12/30/19 24 No longer eligible based on patient's age to complete this topic Hepatitis C Screening Completed 01/04/2025 Influenza Vaccine [...] Procedure Name Priority Date/Time Associated Diagnosis Comments LAB COLOGUARD?? COLON CANCER SCREEN Routine 01/27/2025 6:15 AM EDT Screening for colon cancer T4, FREE Routine 01/04/2025 11:17 AM EST [...] Recently Relevant to Health Maintenance Results * Cologuard?? colon cancer screening (01/27/2025 6:15 AM EDT) Cologuard Result Negative Negative 02/03/20 8:55 AM EDT [facility] (IA #:[id number]) Comment: NEGATIVE TEST RESULT. A negative Cologuard result indicates a low likelihood that a colorectal cancer (CRC) or advanced adenoma (adenomatous polyps with more advanced pre-malignant features) ??is present. The chance that a person with a negative Cologuard test has a colorectal cancer is less than 1 in 1500 (negative predictive value >99.9%) or has an ??advanced adenoma is less than ??5.3% (negative predictive value 94.7%). These data are based on a prospective cross-sectional study of 10,000 individuals at average risk for colorectal cancer who were screened with both Cologuard and colonoscopy. (Nazario Jean Baptiste al, N Engl J Med 2014;370(14):1286- 1297) The normal value (reference range) for this assay is negative. COLOGUARD RE-SCREENING RECOMMENDATION: Periodic colorectal cancer screening is an important part of preventive healthcare for asymptomatic individuals at average risk for colorectal cancer. ??Following a negative Cologuard result, the [employer] [place] [employer] and U.S. Multi-Society Task Force screening guidelines recommend a Cologuard re-screening interval of 3 years. References: [employer] Guideline for Colorectal Cancer Screening: https://www.cancer.org/cancer/zeoqb-erbkoq-ltzgbw/iljetdafg-gigtnzbdh-jeqmywt/ac s-rec ommendations.html.; Tien DK, Gus CR, Roberto MathiasK, Colorectal Cancer Screening: Recommendations for Physicians and Patients from the U.S. Multi-Society Task Force on Colorectal Cancer Screening , Am J Gastroenterology 2017; 112:6855-8184. TEST DESCRIPTION: Composite algorithmic analysis of stool DNA-biomarkers with hemoglobin immunoassay. ?? Quantitative values of individual biomarkers are not reportable and are not associated with individual biomarker result reference ranges. Cologuard is intended for colorectal cancer screening of adults of either sex, 45 years or older, who are at average-risk for colorectal cancer (CRC). Cologuard has been approved for use by the U.S. FDA. The performance of Cologuard was established in a cross sectional study of average-risk adults aged 50-84. Cologuard performance in patients ages 45 to 49 years was estimated by sub-group analysis of near-age groups. Colonoscopies performed for a positive result may find as the most clinically significant lesion: colorectal cancer [4.0%], advanced adenoma (including sessile serrated polyps greater than or equal to 1cm diameter) [20%] or non- advanced adenoma [31%]; or no colorectal neoplasia [45%]. These estimates are derived from a prospective cross-sectional screening study of 10,000 individuals at average risk for colorectal cancer who were screened with both Cologuard and colonoscopy. (Nazario Ohara et al, N Engl J Med 2014;370(14):9045-8380.) Cologuard may produce a false negative or false positive result (no colorectal cancer or precancerous polyp present at colonoscopy follow up). A negative Cologuard test result does not guarantee the absence of CRC or advanced adenoma (pre-cancer). The current Cologuard screening interval is every 3 years. ([employer] and U.S. Multi-Society Task Force). Cologuard performance data in a 10,000 patient pivotal study using colonoscopy as the reference method can be accessed at the following location: www.[employer].Earthineer/results. Additional description of the Cologuard test process, warnings and precautions can be found at www.[employer].com. Stool specimen (specimen) 01/27/2025 6:15 AM EDT 01/29/2025 7:22 AM EDT us Jaci Stauffer MD LAB MOLECULAR DIAGNOSTICS ORDERA BLES Final Result [facility] (CLIA #:[id number]) [address] [place] [address], * Vitamin D, 25-Hydroxy, Total, Immunoassay (01/04/2025 11:17 AM EST) Vitamin D 25-OH Total 69.0 >30 ng/mL [facility] Comment:Health Based Referen ce Values*< 20 ng/mL Evnljmeit85-37 ng/mL Insufficient> 30 ng/mL Sufficient*Shahriar HAMLIN. N [...] ORDERABLES Final Resul t Performing Organization Address City/[facility]/ZIP Co de Phone Number [facility] [address] [place] [phone] * (ABNORMAL) TSH with Reflex to Free T4 (01/04/2025 11:17 AM EST) TSH reflex Free T4 0.31(L) 0.32 - 4.0 uIU/mL [facility] Blood 01/04/2025 11:1 7 AM EST 01/04/2025 1:08 PM EST Jaci Stauffer MD LAB BLOOD ORDERABLES Final Resul t Performing Organization Address City/[facility]/ZIP Co de Phone Number [facility] [address] [place] [address] [phone] * Lipid Panel with Reflex to Direct LDL (01/04/2025 11:17 AM EST) Triglycerides 96 <150 mg/dL [facility] Comment:Desirable Triglyceri de: less than 150 mg/dLBorderline High Triglyceride 150-199 mg/dLHigh Triglyceride: 200-499 mg/dLVery High Triglyceride: greater than or equal to 5OO mg/dL Cholesterol 175 <200 mg/dL [facility] Comment:Desirable Cholestero l: less than 200 mg/dLBorderline High Cholesterol: 200-239 mg/dLHigh Cholesterol: greater than 239 mg/dL LDL Cholesterol Calculated 94 <100 mg/dL [facility] Comment:Desirable LDL: less than 100 mg/dLNear Optimal/Above Optimal LDL: 110- 129 mg/dLBorderline High LDL: 130-159 mg/dLHigh LDL: 160-189 mg/dLVery High LDL: greater than or equal to 190 mg/dL HDL Cholesterol 62 >40 mg/dL [facility] Comment:Desirable HDL: great er than 40 mg/dL Note: This HDL assay may give artificially low results in patients with liver disease. Blood 01/04/2025 11:1 7 AM EST 01/04/2025 1:08 PM EST us Jaci Stauffer MD LAB BLOOD ORDERABLES Final Resul t [facility] [address] [place] [phone] * (ABNORMAL) CBC auto differential (01/04/2025 11:17 AM EST) White Blood Count 6.7 4.8 - 10.8 X10*3/uL [facility] Red Blood Count 4.28 4.20 - 5.50 X10*6/uL [facility] Hemoglobin 13.6 12.0 - 16.0 g/dl [facility] Hematocrit 41.3 37.0 - 47.0 % [facility] Mean Corpuscular Volume 96.5 80.0 - 98.0 fL [facility] Mean Corpuscular Hemoglobin 31.8 27.0 - 33.0 pg [facility] Mean Corpuscular HGB Conc 32.9 31.0 - 35.0 g/dl [facility] Red Cell Distribution Width 12.7 11.0 - 16.0 % [facility] Platelet Count 259 160 - 400 X10*3/uL [facility] Mean Platelet Volume 9.5 9.4 - 12.3 fL [facility] Neutrophils Percent Auto 49.8 45 - 73 % [facility] Imm Gran Pct Auto 0.3 0.0 - 0.4 % [facility] Lymphocytes Percent Auto 41.0(H) 20 - 40 % [facility] Monocytes Percent Auto 4.9 2 - 11 % [facility] Eosinophils Percent Auto 3.3 0 - 4 % [facility] Basophils Percent Auto 0.7 0 - 2 % [facility] NRBC Pct Auto 0.0 0.0 - 0.2 /100WBC [facility] Neutrophils Absolute Auto 3.3 2.0 - 8.3 x10*3/uL [facility] Imm Gran Abs Auto 0.02 0.00 - 0.03 X10*3/uL [facility] Lymphocytes Absolute Auto 2.7 1.2 - 4.9 X10*3/uL [facility] Monocytes Absolute Auto 0.3 0.1 - 1.2 X10*3/uL [facility] Eosinophils Absolute Auto 0.2 0.0 - 0.4 X10*3/uL [facility] Basophils Absolute Auto 0.1 0.0 - 0.2 X10*3/uL [facility] NRBC Abs Auto 0.000 0.0 - 0.012 X10*3/uL [facility] Blood Venous blood specimen / Unknown 01/04/2025 11:17 AM EST 01/04/2025 1:08 PM EST us Jaci Stauffer MD LAB BLOOD ORDERABLES Final Resul t [facility] [address] [place] [address] [phone] * Hepatitis C Antibody with Reflex to HCV, RNA, Quantitative, Real-Time PCR (01/04/2025 11:17 AM EST) [facility] Hepatitis C Antibody Nonreactive Nonreactive [facility] Comment:Antibodies to HCV no t detected; does not exclude early acuteHCV infection. Blood Venous blood specimen / Unknown 01/04/2025 11:17 AM EST 01/04/2025 1:06 PM EST Jaci Stauffer MD LAB BLOOD ORDERABLES Final Resul t Performing Organization Address City/[facility]/ZIP Co de Phone Number [facility] [address] [place] [phone] * HIV-1/2 Antigen and Antibodies, Fourth Generation, with Reflexes (01/04/2025 11:17 AM EST) [facility] HIV AB/AG Nonreactive Nonreactive [facility] Comment:HIV-1 p24 Ag and/or HIV-1/HIV-2 Ab not detected.A test result that is nonreactive does not exclude thepossibility of exposure to or infection with HIV-1 and/orHIV-2. Nonreactive results in this assay for individualswith prior exposure to HIV-1 and/or HIV-2 may be due toantigen and antibody levels that are below the limit ofdetection of this assay.The [employer] HIV Ag/Ab Combo assay result andsupplemental assay results should be interpreted inconjunction with the patient's clinical presentation,history and other laboratory results. If the results areinconsistent with clinical evidence, additional testing issuggested to confirm the result. Blood Venous blood specimen / Unknown 01/04/2025 11:17 AM EST 01/04/2025 1:06 PM EST us Jaci Stauffer MD LAB BLOOD ORDERABLES Final Resul t Performing Organization Address City/[facility]/ZIP Co de Phone Number [facility] [address] [place] [address] [phone] * T4, Free (01/04/2025 11:17 AM EST) Free T4 (Free Thyroxine) 1.40 0.71 - 1.85 ng/dL [facility] 01/04/2025 11:1 7 AM EST 01/04/2025 1:08 PM EST Jaci Stauffer MD LAB BLOOD ORDERABLES Final Resul t Performing Organization Address [facility] de Phone Number [facility] [address] [place] [phone] * Hemoglobin A1c (01/04/2025 11:17 AM EST) Pathologist [facility] Hemoglobin A1c 5.0 <6.0 % [facility] Comment:Hemoglobin A1C Refer ence Range Adults: 4.8 - 6.0 % Non diabetic: < 6.0 % Goal: < 7.0 %Additional Action Suggested: > 8.0 %Note: Hemoglobin A1c results are invalid for patients with abnormal amounts of HbF. Blood transfusions may impact the HbA1c concentration in the patient sample. Estimated Average Glucose 97 mg/dL [facility] Comment:eAG = Estimated ave rage glucose which is %A1C expressed asaverage glucose, using the formula of the P8N-ZctbfxmXriennp Glucose study (ADAG), Diabetes Care, Vol.31,#8,Jun. 2007 Blood Venous blood specimen / Unknown 01/04/2025 11:17 AM EST 01/04/2025 1:08 PM EST us Jaci Stauffer MD LAB BLOOD ORDERABLES Final Resul t Performing Organization Address [facility] Co de Phone Number [facility] [address] [place] [phone] * (ABNORMAL) Comprehensive Metabolic Panel (01/04/2025 11:17 AM EST) Pathologist [facility] Sodium 141 135 - 145 mmol/L [facility] Potassium 4.3 3.3 - 5.1 mmol/L [facility] Chloride 111(H) 96 - 108 mmol/L [facility] Carbon Dioxide 24 22 - 29 mmol/L [facility] Anion Gap 10(L) 12 - 20 [facility] Urea Nitrogen (BUN) 21(H) 9 - 16 mg/dL [facility] Creatinine, Serum 0.80 0.5 - 1.4 mg/dL [facility] Estimated Glomerular Filt Rate >60 [facility] Comment:Chronic Kidney Disea se: Estimated GFR < 60 mL/min/1.20y8Lpbnyv Kidney Disease: Estimated GFR < 15 mL/min/1.73m2 Glucose 95 60 - 115 mg/dL [facility] Calcium 9.6 8.4 - 10.2 mg/dL [facility] Bilirubin, Total 0.4 0.0 - 1.0 mg/dL [facility] Aspartate Amino Transferase 18 5 - 31 U/L [facility] Alanine Aminotransferase 13 0 - 31 U/L [facility] Total Protein 7.0 6.5 - 8.0 g/dL [facility] Albumin Level 4.2 3.5 - 5.0 g/dL [facility] Alkaline Phosphatase 49 39 - 117 U/L [facility] Blood Venous blood specimen / Unknown 01/04/2025 11:17 AM EST 01/04/2025 1:08 PM EST us Jaci Stauffer MD LAB BLOOD ORDERABLES Final Resul t [facility] [address] [place] [phone] * BI Mammogram Screening Tomosynthesis Bilateral (01/14/2024 10:25 AM EST) Anatomical Region Laterality Modality Breast Bilateral Mammography 01/14/2024 10:2 5 AM EST Narrative 01/26/2024 4:55 AM EDT ? [facility] ? [address] ?[place] [address] ? Mammography Report ? Signed ? Patient: Larkowski,Prema M ?MR#: [id number] ?? [id number] ? : 1965 ?Acct:[id number] ? Age/Sex: 58 / F ?ADM Date: 03/06/24 ? Loc: HO.MAMMO ? Attending Dr: Jaci Stauffer MD ? Ordering Physician: Jaci Stauffer MD ?Results: 1Negative ? Date of Service: 01/14/24 ?Follow Up: 1 Year From Orig ?? inal Mammogram ? Procedure(s): MM tomosynthesis screening BI ?? Accession Number(s): [id number] ? cc: Jaci Stauffer MD ? EXAMINATION: [...] by Claudia Solomon MD in OV> ? 03/18/24 0451 ? DD/ 1025 ? TD/TT: ? Disc Pad Grinder: ? Procedure Note Donotuseinterpreter, Image - [facility] [address] [place] [address] Mammography Report Signed Patient: Prema Shaver MMR#: [id number] : 1965Acct:[id number] Age/Sex: 58 / FADM Date: 01/14/24 Loc: JYOTSNA Attending Dr: Jaci Stauffer MD Ordering Physician: Jaci Stauffer MDResults: 1Negative Date of Service: 01/14/24Follow Up: 1 Year From Orig inal Mammogram Procedure(s): MM tomosynthesis screening BI Accession Number(s): [id number] cc: Jaci Stauffer MD EXAMINATION: MM SCREENING [...] in OV> 01/26/24 0451 DD/ 1025 TD/TT: Disc Pad Grinder: Jaci Stauffer MD IMG BI PROCEDURES Final Result * HPV DNA, HIGH RISK, CERVICAL (06/13/2020 12:00 AM EDT) HPV DNA, HIGH RISK, CERVICAL [facility] Comment: ?? Test not performed. The specimen was in an acceptable condition when received and a problem developed during handling. 06/13/2020 Jaci Stauffer MD HISTORICAL/NON ORDERABLE LABS Fi nal Result [facility] [address] * THINPREP PAP (06/13/2020 12:00 AM EDT) Clinical Information: SEE COMMENT [facility] Comment:None given COMMENT SEE COMMENT [...] historic and ?? current clinical information. ?? Electronic Page Makeup System Operator: SEE COMMENT [facility] Comment: SXA, CT(ASCP) CT screening location: [address] ??[address] Interpretation/Resu lt: SEE COMMENT [facility] Comment:Negative for intraep ithelial lesion or malignancy. LMP: SEE COMMENT [facility] Comment:NONE GIVEN Prev. BX: NONE GIVEN [facility] Prev. PAP: SEE COMMENT [facility] Comment:NONE GIVEN SOURCE: SEE COMMENT [facility] Comment:None given Statement Of Adequacy: SEE COMMENT [facility] Comment: Satisfactory for evaluation. Endocervical/transformation zone component present. 06/13/2020 Jaci Stauffer MD LAB PATHOLOGY ORDERABLES Final R esult [facility] [address] [place] [address], from Last 3 Months or Most Recently Relevant to Health Maintenance Insurance [facility] ST[facility] Care Teams Personal Companion Relationship Specialty Start Date End Date Jaci Stauffer MD [address] [place] [phone] PCP - General Family Medicine 10/22/12
--- OUTSIDE RECORDS SUMMARY | 2025-02-24 11:55 | XMS_ITS | Encounter Summary ---
Author Organization [employer] Address [address] [facility] [place] [address] Care Team Providers Care Public Space Attendant Name Role Phone Jaci Stauffer MD Primary Care Provider [phone] Encounter Details Date Type Department Care Team ([facility] st Contact Info) Description 01/18/2025 Orders Only [facility] MED[facility] [address] [place] [address] Jaci Stauffer MD [address] [place] [address] Social History Tobacco Use Types Packs/Day Years [...] documented as of this encounter Care Teams Public Space Attendant Relationship Specialty Start Date End Date Jaci Stauffer MD [address] [place] [address] PCP - General Family Medicine 10/22/12 documented as of this encounter
[2025-02-24 12:10] LABS: TSH reflex Free T4 0.26 uIU/mL (0.32-4.0)
[2025-02-24 12:46] LABS: Free T4 (Free Thyroxine) 1.42 ng/dL (0.71-1.85)
== END 2025-02-24 10:07 | disposition home or self-care (01) ==
LOC: HO.HHCL 10:06
PROVIDERS: Visit Provider Family Medicine
DX: E89.0 Postprocedural hypothyroidism (principal)
CPT/HCPCS: 36415; 84439; 84443

== ENCOUNTER 2025-08-11 12:06 | Outpatient (REF) | payer MEDICAID, SELFPAY ==
--- OUTSIDE RECORDS SUMMARY | 2025-08-11 11:15 | XMS_ITS | Encounter Summary ---
Author Organization [employer] Address [address] [place] [address] Care Team Providers Care Information Technology Internship Name Role Phone Jaci Stauffer MD Primary Care Provider [phone] Encounter Details Date Type Department Care Team (Late st Contact Info) Description 08/11/2025 11:15 AM EDT Office Visit [facility] [address] [place] [address] Jaci Stauffer MD [address] [place] [address] Paroxysmal atrial flutter (CMS/HCC) (HCC) (Primary Dx); Mood disorder (CMS/HCC); Postoperative hypothyroidism; Tobacco dependence syndrome; Vitamin D deficiency; Fatigue, unspecified type; Encounter for immunization Social History Tobacco Use Types Packs/Day Years Used Date Smoking Tobacco: Every Day Cigarettes 1 42.8 Started: 1982 Smokeless Tobacco: Never Alcohol Use [...] Sign Reading Time Taken Comments Blood Pressure 128/68 08/11/2025 11:31 AM EDT Pulse 66 08/11/2025 11:31 AM EDT Temperature 36.1 C (96.9 F) 08/11/2025 11:31 AM EDT Respiratory Rate 15 08/11/2025 11:31 AM EDT Oxygen Saturation 96% 08/11/2025 11:31 AM EDT Inhaled Oxygen Concentration - - Weight 107 kg (235 lb 3.2 oz) 08/11/2025 11:31 A M EDT Height 170.2 cm (5' 7 ) 08/11/2025 11:31 AM EDT Body Mass Index 36.84 08/11/2025 11:31 AM EDT documented in this encounter Miscellaneous Notes * Assessment & Plan Note - Jaci Stauffer MD - 08/11/2025 5:52 AM EDTAssociated Problem(s): Postoperative hypothyroidism -s/p thyroidectomy on 08/28/21 -current replacement: Levothyroxine 175mcg daily -last TSH 6.56 on 10/04/22 documented in this encounter Plan of Treatment Scheduled Orders Name Type Priority Associated Diagnoses Orde r Schedule Comprehensive Metabolic Panel Lab Routine Fatigue, unspecified type Expected: 08/11/2025 (Approximate), Expires: 08/11/2026 Urinalysis, Complete, with Reflex to Culture Lab Routine Fatigue, unspecified type Expected: 08/11/2025 (Approximate), Expires: 08/11/2026 documented as of this encounter Procedures Procedure Name Priority Date/Time Associated Diagnosis Comments CBC WITH AUTO DIFFERENTIAL Routine 08/11/2025 12:13 PM EDT Fatigue, unspecified type documented in this encounter Results * (ABNORMAL) CBC auto differential (08/11/2025 12:13 PM EDT) White Blood Count 7.9 4.8 - 10.8 X10*3/uL [facility] Red Blood Count 4.12(L) 4.20 - 5.50 X10*6/uL [facility] Hemoglobin 13.2 12.0 - 16.0 g/dl [facility] Hematocrit 40.0 37.0 - 47.0 % [facility] Mean Corpuscular Volume 97.1 80.0 - 98.0 fL [facility] Mean Corpuscular Hemoglobin 32.0 27.0 - 33.0 pg [facility] Mean Corpuscular HGB Conc 33.0 31.0 - 35.0 g/dl [facility] Red Cell Distribution Width 13.6 11.0 - 16.0 % [facility] Platelet Count 269 160 - 400 X10*3/uL [facility] Mean Platelet Volume 9.4 9.4 - 12.3 fL [facility] Neutrophils Percent Auto 47.7 45 - 73 % [facility] Imm Gran Pct Auto 0.6(H) 0.0 - 0.4 % [facility] Lymphocytes Percent Auto 42.3(H) 20 - 40 % [facility] Monocytes Percent Auto 4.7 2 - 11 % [facility] Eosinophils Percent Auto 3.8 0 - 4 % [facility] Basophils Percent Auto 0.9 0 - 2 % [facility] NRBC Pct Auto 0.0 0.0 - 0.2 /100WBC [facility] Neutrophils Absolute Auto 3.7 2.0 - 8.3 x10*3/uL [facility] Imm Gran Abs Auto 0.05(H) 0.00 - 0.03 X10*3/uL [facility] Lymphocytes Absolute Auto 3.3 1.2 - 4.9 X10*3/uL [facility] Monocytes Absolute Auto 0.4 0.1 - 1.2 X10*3/uL [facility] Eosinophils Absolute Auto 0.3 0.0 - 0.4 X10*3/uL [facility] Basophils Absolute Auto 0.1 0.0 - 0.2 X10*3/uL [facility] NRBC Abs Auto 0.000 0.0 - 0.012 X10*3/uL [facility] Blood Venous blood specimen / Unknown 08/11/2025 12:13 PM EDT 08/11/2025 1:17 PM EDT Jaci Stauffer MD LAB BLOOD ORDERABLES Final Resul t [facility] [address] [place] [phone] documented in this encounter Visit Diagnoses Diagnosis Paroxysmal atrial flutter (CMS/HCC) (HCC)- Primary Mood disorder (CMS/HCC) Unspecified episodic mood disorder Postoperative hypothyroidism Postsurgical hypothyroidism Tobacco dependence syndrome Tobacco use disorder Vitamin D deficiency Fatigue, unspecified type Encounter for immunization documented in this encounter Additional Health Concerns Assessment Noted Time PHQ-9 Depression Total Score: 0 01/05/20 25 2:40 PM EST documented as of this encounter Care Teams Information Technology Internship Relationship Specialty Start Date End Date Jaci Stauffer MD [address] [place] [phone] PCP - General Family Medicine 10/22/12 documented as of this encounter
[2025-08-11 13:22] LABS: MANUAL DIFF FLAG NO
[2025-08-11 13:26] LABS: Hematocrit 40.0 % (37.0-47.0); Hemoglobin 13.2 g/dl (12.0-16.0); Imm Gran Abs Auto 0.05 X10*3/uL (0.00-0.03); Imm Gran Pct Auto 0.6 % (0.0-0.4); Lymphocytes Absolute Auto 3.3 X10*3/uL (1.2-4.9); Mean Corpuscular HGB Conc 33.0 g/dl (31.0-35.0); Mean Corpuscular Hemoglobin 32.0 pg (27.0-33.0); Mean Corpuscular Volume 97.1 fL (80.0-98.0); NRBC Abs Auto 0.000 X10*3/uL (0.0-0.012); NRBC Pct Auto 0.0 /100WBC (0.0-0.2); Platelet Count 269 X10*3/uL (160-400); Red Blood Count 4.12 X10*6/uL (4.20-5.50); White Blood Count 7.9 X10*3/uL (4.8-10.8)
--- OUTSIDE RECORDS SUMMARY | 2025-08-11 13:47 | XMS_ITS | Encounter Summary ---
Author Organization [employer] Address [address] [place] [address] Care Team Providers Care Plant Control Aide Name Role Phone Jaci Stauffer MD Primary Care Provider [phone] Encounter Details Date Type Department Care Team (Late st Contact Info) Description 03/07/2025 Orders Only [facility]INE [address] [place] [address] Jaci Stauffer MD [address] [place] [address] Postoperative hypothyroidism (Primary Dx) Social History Tobacco [...] Type Priority Associated Diagnoses Orde r Schedule T4, Free Lab Routine Postoperative hypothyroidism Expected: 04/18/2025 (Approximate), Expires: 03/07/2026 TSH Lab Routine Postoperative hypothyroidism Expected: 04/18/2025 (Approximate), Expires: 03/07/2026 documented as of this encounter Visit Diagnoses Diagnosis Postoperative hypothyroidism- Primary Postsurgical hypothyroidism documented in this encounter Additional Health Concerns Assessment Noted Time PHQ-9 Depression Total Score: 0 01/05/20 25 2:40 PM EST documented as of this encounter Care Teams Plant Control Aide Relationship Specialty Start Date End Date Jaci Stauffer MD [address] [place] [address] PCP - General Family Medicine 10/22/12 documented as of this encounter
--- OUTSIDE RECORDS SUMMARY | 2025-08-11 13:47 | XMS_ITS | Encounter Summary ---
Author Organization [employer] Address [address] [facility] [address] [place] [address] Care Team Providers Care Department Sales Manager Name Role Phone Jaci Stauffer MD Primary Care Provider [phone] Reason for Visit * Reason Onset Date Comments Med Refill 09/13/2024 Encounter Details Date Type Department Care Team (Late st Contact Info) Description 09/13/2024 Telephone [facility] [address] [place] [address] Jaci Stauffer MD [address] [place] [address] Med Refill Social History Tobacco Use Types [...] the past 12 months, has t he [employer], gas, oil or water [employer] threatened to shut off services in your [...] documented as of this encounter Care Teams Department Sales Manager Relationship Specialty Start Date End Date Jaci Stauffer MD [address] [place] [phone] PCP - General Family Medicine 10/22/12 documented as of this encounter
--- OUTSIDE RECORDS SUMMARY | 2025-08-11 13:47 | XMS_ITS | Encounter Summary ---
Author Organization [employer] Address [address] [facility] 7t [place] [address] Care Team Providers Care Feed Project Engineer Name Role Phone Jaci Stauffer MD Primary Care Provider Reason for Visit * Reason Comments Med Refill Encounter Details Date Type Department Care Team (Late st Contact Info) Description 01/12/2025 Refill [facility]INE [address] [place] [address] Jaci Stauffer MD [address] [place] [address] Social History Tobacco Use Types Packs/Day Years [...] documented as of this encounter Care Teams Feed Project Engineer Relationship Specialty Start Date End Date Jaci Stauffer MD [address] [place] [id number] PCP - General Family Medicine 10/22/12 documented as of this encounter
--- OUTSIDE RECORDS SUMMARY | 2025-08-11 13:47 | XMS_ITS | Encounter Summary ---
Author Organization [employer] Address [address] [place] [address] Care Team Providers Care Sign Maker Name Role Phone Jaci Stauffer MD Primary Care Provider [phone] Encounter Details Date Type Department Care Team (Latest Contact Info) Description 08/11/2025 Travel Social History Tobacco Use Types Packs/Day [...] documented as of this encounter Care Teams Sign Maker Relationship Specialty Start Date End Date Jaci Stauffer MD [address] [place] [address] PCP - General Family Medicine 10/22/12 documented as of this encounter
--- OUTSIDE RECORDS SUMMARY | 2025-08-11 13:47 | XMS_ITS | Encounter Summary ---
Author Organization [employer] Address [address] [place] [address] Care Team Providers Care Seat Scooper Machine Name Role Phone Jaci Stauffer MD Primary Care Provider [phone] Encounter Details Date Type Department Care Team (Late st Contact Info) Description 01/18/2025 Orders Only [facility] [address] [place] [address] Jaci Stauffer MD [address] [place] [address] Social History Tobacco Use Types Packs/Day Years [...] documented as of this encounter Care Teams Seat Scooper Machine Relationship Specialty Start Date End Date Jaci Stauffer MD [address] [place] [address] PCP - General Family Medicine 10/22/12 documented as of this encounter
--- OUTSIDE RECORDS SUMMARY | 2025-08-11 13:47 | XMS_ITS | Encounter Summary ---
Author Organization [employer] Address [address] [facility] 7[address] [place] [address] Care Team Providers Care Canopy Inspector Name Role Phone Jaci Stauffer MD Primary Care Provider [phone] Reason for Visit * Reason Onset Date Comments Nurse Triage 08/09/2025 Encounter Details Date Type Department Care Team (Late st Contact Info) Description 08/09/2025 Telephone [facility] MEDICINE [address] [place] [address] Jaci Stauffer MD [address] [place] [address] Nurse Triage Social History Tobacco Use Types Packs/Day Years [...] the past 12 months, has t he [employer], gas, oil or water [employer] threatened to shut off services in your [...] encounter Miscellaneous Notes * Telephone Encounter - Ya Zhou RN - 08/09/2025 12:05 PM EDT called pt to triage, spoke to pt. pt states >2 weeks duration of fatigue, and lack of energy. ptstates had her Thyroid removed about 3 years ago and has been on replacement since then. looking inthe chart, pt last had thyroid labs in January. pt given appt with PCP at 11:15 for exam andpossible labs. pt reports good compliance with thyroid medication and takes on empty stomach in themornings. advised home care: rest, fluids, medication, and call back as needed. pt understands and agrees with plan. insurance verified. Protocol Used: Weakness (Generalized) and Fatigue (Adult) Protocol-Based Disposition: See in Office or Video Visit within 3 Days Video visit offer not recorded Positive Triage Question: * Fatigue (i.e., tires easily, decreased energy) and lasts > 1 week * All higher-acuity triage questions were negative Care Advice Discussed: * Reassurance and Education - Mild Fatigue or Weakness * Reasons To Call Back - You become worse * Telephone Encounter - Erinmerle Wendy - 08/09/2025 11:18 AM EDT Symptom: Lethargic (Tired) Outcome: Schedule an appointment to be seen within 3 days Reason: Caller denied all higher acuity questions The caller accepted this outcome. Contact pt at [phone] documented in this encounter Plan of Treatment Not on file documented as of this encounter Visit Diagnoses Not on filedocumented in this encounter Additional Health Concerns Assessment Noted Time PHQ-9 Depression Total Score: 0 01/05/20 25 2:40 PM EST documented as of this encounter Care Teams Canopy Inspector Relationship Specialty Start Date End Date Jaci Stauffer MD [address] [place] [phone] PCP - General Family Medicine 10/22/12 documented as of this encounter
--- OUTSIDE RECORDS SUMMARY | 2025-08-11 13:47 | XMS_ITS | Encounter Summary ---
Author Organization [employer] Address [address] [place] [address] Care Team Providers Care Expanding Machine Operator Name Role Phone Jaci Stauffer MD Primary Care Provider [phone] Encounter Details Date Type Department Care Team ([facility] st Contact Info) Description 08/10/2025 Telephone [facility] MED[facility]INE [address] [place] [address] Jaci Stauffer MD [address] [place] [address] Social History Tobacco Use Types Packs/Day Years [...] encounter Miscellaneous Notes * Telephone Encounter - Balbir Hodge MA - 08/10/2025 3:15 PM EDT Chart Prep Labs: not done Images: not applicable Referrals: not applicable Vaccines due: Flu and Tdap Screenings: not applicable Overdue care gaps: Disability screen documented in this encounter Plan of Treatment Not on file documented as of this encounter Visit Diagnoses Not on filedocumented in this encounter Additional Health Concerns Assessment Noted Time PHQ-9 Depression Total Score: 0 01/05/20 2:40 PM EST documented as of this encounter Care Teams Expanding Machine Operator Relationship Specialty Start Date End Date Jaci Stauffer MD [address] [place] [address] PCP - General Family Medicine 10/22/12 documented as of this encounter
--- OUTSIDE RECORDS SUMMARY | 2025-08-11 13:47 | XMS_ITS | Encounter Summary ---
Author Organization [employer] Address [address] [place] [address] Care Team Providers Care Latin Teacher Name Role Phone Jaci Stauffer MD Primary Care Provider [phone] Encounter Details Date Type Department Care Team (Late st Contact Info) Description 01/04/2025 Orders Only [facility] MEDICINE [address] [place] [address] Jaci Stauffer MD [address] [place] [address] Postoperative hypothyroidism (Primary Dx) Social History Tobacco [...] AM EDT documented as of this encounter Functional Status * Over the past 2 weeks, how often have you been bothered by any of the following problems? Question Answer Date of Assessment Author Patient Health Questionnaire -2 Score 0 01/05/2025 2:40 PM Anjelica Mccord MA * Little interest or pleasure in doing things Answer Date of Assessment Author Not at all 01/05/2025 2:40 PM Verna Mccord MA * Feeling down, depressed, or hopeless Answer Date of Assessment Author Not at all 01/05/2025 2:40 PM Verna Mccord MA * Trouble falling or staying asleep, or sleeping too much Answer Date of Assessment Author Not at all 01/05/2025 2:40 PM Verna Mccord MA * Feeling tired or having little energy Answer Date of Assessment Author Not at all 01/05/2025 2:40 PM Verna Mccord MA * Poor appetite or overeating Answer Date of Assessment Author Not at all 01/05/2025 2:40 PM Verna Mccord MA * Feeling bad about yourself - or that you are a failure or have let yourself or your family down Answer Date of Assessment Author Not at all 01/05/2025 2:40 PM Verna Mccord MA * Trouble concentrating on things, such as reading the newspaper or watching television Answer Date of Assessment Author Not at all 01/05/2025 2:40 PM Verna Mccord MA * Moving or speaking so slowly that other people could have noticed? Or the opposite - being so fidgety or restless that you have been moving around a lot more than usual. Answer Date of Assessment Author Not at all 01/05/2025 2:40 PM Verna Mccord MA * Thoughts that you would be better off or hurting yourself in some way Answer Date of Assessment Author Not at all 01/05/2025 2:40 PM Verna Mccord MA * Patient Health Questionnaire-9 Score Answer Date of Assessment Author 0 01/05/2025 2:40 PM Verna Mccord MA * Over the last 2 weeks, how often have you been bothered by any of the following problems? Question Answer Date of Assessment Author Feeling nervous, anxious, or on edge 0 01/05/2025 2:40 PM Anjelica Mccord MA Not being able to stop or control worrying 0 01/05/2025 2:40 PM Anjelica Mccord MA Worrying too much about different things 0 01/05/2025 2:40 PM Anjelica Mccord MA Trouble relaxing 0 01/05/2025 2:40 PM Verna Soliz MA Being so restless that it is hard to sit still 0 01/05/2025 2:40 PM Anjelica Mccord MA Becoming easily annoyed or irritable 0 01/05/2025 2:40 PM Anjelica Mccord MA Feeling afraid as if somethi ng awful might happen 0 01/05/2025 2:40 PM Anjelica Mccord MA MELA-7 Total Score 0 01/05/2025 2:40 PM Verna Mccord MA documented as of this encounter Plan of Treatment Not on file documented as of this encounter Procedures Procedure Name Priority Date/Time Associated Diagnosis Comments TSH W/REFLEX TO FT4 Routine 02/24/2025 10:07 AM EDT Postoperative hypothyroidism documented in this encounter Results * (ABNORMAL) TSH with Reflex to Free T4 (02/24/2025 10:07 AM EDT) TSH reflex Free T4 0.26(L) 0.32 - 4.0 uIU/mL [facility] Blood 02/24/2025 10:0 7 AM EDT 02/24/2025 11:19 AM EDT us Jaci Stauffer MD LAB BLOOD ORDERABLES Final Resul t [facility] [address] [place] [phone] documented in this encounter Visit Diagnoses Diagnosis Postoperative hypothyroidism- Primary Postsurgical hypothyroidism documented in this encounter Additional Health Concerns Assessment Noted Time PHQ-9 Depression Total Score: 0 01/04/20 25 10:21 AM EST documented as of this encounter Care Teams Latin Teacher Relationship Specialty Start Date End Date Jaci Stauffer MD [address] [place] [address] PCP - General Family Medicine 10/22/12 documented as of this encounter
--- OUTSIDE RECORDS SUMMARY | 2025-08-11 13:47 | XMS_ITS | Clinical Summary ---
Author Organization [employer] Address [address] [facility] [address] [place] [address] Care Team Providers Care Volunteer Assistant Name Role Phone Jaci Stauffer MD Primary Care Provider [phone] Allergies Active Allergy Reactions Criticality Noted Date [...] oral route 2 times every bedtime Active nicotine (Nicoderm, Step 1) 21 MG/24HR patch Place 1 patch on the skin 1 (one) time each day at the same time. 42 patch 1 01/04/20 25 Active nicotine polacrilex (Commit) 4 MG lozenge Dissolve 1 lozenge (4 mg) in the mouth every 2 (two) hours if needed for smoking cessation. 100 lozenge 01/04/20 25 Active levothyroxine (Synthroid, Levoxyl) 175 MCG tablet TAKE ONE TABLET (175 MCG) BY MOUTH EVERY MORNING from Friday to Friday 90 tablet 1 03/07/20 25 Active cholecalciferol (Vitamin D-3) 25 MCG tablet TAKE ONE TABLET BY MOUTH EVERY DAY 90 tablet 3 03/10/20 25 Active loratadine (Claritin) 10 MG tabletIndicatio ns:Allergic rhinitis, unspecified seasonality, unspecified trigger TAKE ONE TABLET BY MOUTH EVERY MORNING 90 tablet 1 05/16/20 25 Active cyclobenzaprine (Flexeril) 10 MG tablet TAKE 1 TABLET BY MOUTH AT BEDTIME IF NEEDED 30 tablet 3 05/16/20 25 Active traZODone (Desyrel) 50 MG tablet TAKE ONE AND ONE-HALF TABLETS BY MOUTH AT BEDTIME 45 tablet 3 07/12/20 25 Active levothyroxine (Synthroid) 150 MCG tablet Take 1 tablet by mouth every Friday morning 12 tablet 1 08/11/20 25 Active levothyroxine (Synthroid) 150 MCG tablet Take 1 tablet by mouth every Friday morning 12 tablet 1 03/07/20 25 025 Discontinued(Re order (will not trigger notification to Pharmacy)) Active Problems Problem Noted Date Diagnosed Date Low back pain with radiation 12/29/2024 Vitamin D deficiency 01/03/2024 Assessment & Plan (01/05/2025 12:19 AM EST): - continue vitamin D supplementation Assessment & Plan (01/03/2024 7:21 AM EST): - continue vitamin D supplementation Graves' disease 11/19/2023 11/19/2023 Assessment & Plan (01/05/2025 12:19 AM EST): 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 s/p thyroidectomy 08/28/21 Postoperative hypothyroidism 11/19/2023 Assessment & Plan (08/11/2025 5:52 AM EDT): -s/p thyroidectomy on 08/28/21 -current replacement: Levothyroxine 175mcg daily -last TSH 6.56 on 10/04/22 Assessment & Plan (01/05/2025 12:19 AM EST): [...] TSH 6.56 on 10/04/22 Paroxysmal atrial flutter ([facility]/HCC) 01/16/2017 11/19/2023 Assessment & Plan (01/05/2025 12:18 AM EST): Dx: March 2016. 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 Brewer at [facility] cardiology, last seen in Nov 2022 -last TTE 04/29/22: showed nml EF 60-65%. -last holter monitor 04/29/22, nml -Current medications: metoprolol 25 mg bid Treatment Hx: Amiodarone discontinued in 2017, Eliquis discontinued in February 2019 Continue current treatment plan. Assessment & Plan (12/29/2023 2:30 PM EST): Dx: March 2016. 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 Brewer at [facility] cardiology, last seen in Nov 2022 -last TTE 04/29/22: showed nml EF 60-65%. -last holter monitor 04/29/22, nml -Current medications: metoprolol 25 mg bid Treatment Hx: Amiodarone discontinued in 2017, Eliquis discontinued in February 2019 Continue current treatment plan. Assessment & Plan (11/19/2023 4:54 PM EST): Dx: March 2016. 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 Brewer at [facility] cardiology, last seen in Nov 2022 -last [...] (01/03/2025 8:58 PM EST): - following with [facility] - last seen in November 2023 and received steroid injection to left knee (reported the effect of knee injection lasts about 9 months) - continue rest, ice, leg elevation, and APAP prn for discomfort Assessment & Plan (12/29/2023 2:34 PM EST): - following with [facility] - last seen in November 2023 and received steroid injection to left knee (reported the effect of knee injection lasts about 9 months) - continue rest, ice, leg elevation, and APAP prn for discomfort Assessment & Plan (11/19/2023 5:01 PM EST): - following with [facility] Ortho - last seen in Jul 2022 [...] relaxant -consider referring to pain management at [facility] Assessment & Plan (01/03/2024 7:21 AM EST): -continue judicious use of APAP and muscle relaxant -consider referring to pain management at [facility] Mood disorder 03/11/2013 11/19/2023 Assessment & Plan [...] Encounters Date Type Department Care Team Description 08/11/2025 11:15 AM EDT Office Visit [facility] [address] [place] [phone] Jaci Stauffer MD Paroxysmal atrial flutter (CMS/HCC) (HCC) (Primary Dx); Mood disorder (CMS/HCC); Postoperative hypothyroidism; Tobacco dependence syndrome; Vitamin D deficiency; Fatigue, unspecified type; Encounter for immunization 08/11/2025 Travel 08/10/2025 Telephone [facility]INE [address] [place] [phone] Jaci Stauffer MD 08/09/2025 Telephone [facility] [address] [place] [phone] Jaci Stauffer MD Nurse Triage 07/25/2025 Telephone [facility] [address] [place] [phone] Tegan Mills CNM 07/12/2025 Refill [facility] [address] [place] [phone] Jaci Stauffer MD 06/30/2025 Telephone [facility] [address] [place] [phone] Tegan Mills CNM No Show 06/29/2025 Telephone [facility] [address] [place] [phone] Jaci Stauffer MD chart prep 05/16/2025 Refill [facility] [address] [place] [address] Jaci Stauffer MD 05/13/2025 Refill [facility] [address] [place], [place] [phone] Misty Fontenot DO Allergic rhinitis, unspecified seasonality, unspecified trigger from Last 3 Months Immunizations Immunization Administration Dates Next Due DTaP 06/27/2006 Hep A, Adult 01/04/2025,12/30/2023 Hep B, adult 07/29/2010,01/04/2009,08/19/2008 Influenza injectable quadriv alent preservative free 09/30/2022,09/03/2021 Influenza, seasonal, injecta ble, preservative free 08/11/2025,01/04/2025 Pfizer Covid-19 Vaccine 12+ 01/04/2025 Pneumococcal Conjugate PCV 20 01/04/2025 Pneumococcal Polysaccharide PPSV23 06/14/2013 Td (adult), 5 Lf tetanus tox oid, preservative free, adsorbed 08/01/2015 Tdap 08/11/2025,06/14/2013 Social History Tobacco Use Types Packs/Day Years Used Date Smoking Tobacco: Every Day Cigarettes 1 42.8 Started: 1982 Smokeless Tobacco: Never Tobacco Cessation:Ready [...] Mass Index 36.84 08/11/2025 11:31 AM EDT Plan of Treatment Health Maintenance Due Date Last Done Comments CT Colonography 1965 Colonoscopy 1965 FIT 1965 Sigmoidoscopy 1965 Lung Cancer Screening 2016 Zoster Vaccines (1 of 2) 2016 Cervical Cancer Screening 06/13/2023 HPV/Cotest 06/13/2023 06/13/2020, 05/24/2019 Pap Smear 06/13/2023 06/13/2020 Alcohol/Substance Use Screening 01/04/2026 01/04/2025 SDOH Screening 01/04/2026 01/04/2025 Tobacco Screening 01/04/2026 01/04/2025 Depression Screening 01/05/2026 01/05/2025, 01/05/20 Mammogram 01/13/2026 01/14/2024, 06/10, 12/14/2019, Additional history exists FOBT 01/27/2026 01/27/2025 Disability Screening 08/11/2026 08/11/2025 Colorectal Cancer Screening 01/28/2028 FIT DNA/Cologuard 01/28/2028 01/27/2025 Lipid Panel 01/04/2030 01/04/2025, 12/12, 06/14/2020 DTaP/Tdap/Td Vaccines (5 - Td or Tdap) 08/11/2035 08/11/2025, 08/01/2015, 06/14/2013, Additional history exists RSV Patients and Patients Aged 60 years or older (1 - 1-dose 75+ series) 2041 Hepatitis B Vaccines Completed 07/29/2010, 01/04/2009, 08/19/2008 COVID-19 Vaccine Completed 01/04/2025, , 02/23/2021, Additional history exists HIV Screening Completed 01/04/2025 Hepatitis A Vaccines Aged Out 01/04/2025, 12/30/19 24 No longer eligible based on patient's age to complete this topic Hepatitis C Screening Completed 01/04/2025 Pneumococcal Vaccine: 50+ Years Completed 01/04/2025, 06/14/2013 Influenza Vaccine Completed 08/11/2025, , 09/30/2022, Additional history exists HIB Vaccines Aged Out No longer eligi ble based on patient's age to complete this topic HPV Vaccines Aged Out No longer eligi ble based on patient's age to complete this topic IPV Vaccines Aged Out No longer eligi ble based on patient's age to complete this topic Meningococcal B Vaccine Aged Out No l onger eligible based on patient's age to complete [...] 08/11/2025 12:13 PM EDT Fatigue, unspecified type LAB COLOGUARD COLON CANCER SCREEN Routine 01/27/2025 6:15 AM EDT Screening for colon cancer HEPATITIS C AB W/REFL TO HCV RNA, QN, PCR Routine 01/04/2025 11:17 AM EST Routine screening for STI (sexually transmitted infection) HIV 1/2 ANTIGEN/ANTIBODY, FOURTH GENERATION W/RFL Routine 01/04/2025 11:17 AM EST Routine screening for STI (sexually transmitted infection) LIPID PANEL WITH REFLEX TO DIRECT LDL Routine 01/04/2025 11:17 AM EST Paroxysmal atrial flutter (CMS/HCC) BI MAMMOGRAM SCREENING TOMOSYNTHESIS BILATERAL Routine 01/14/2024 10:25 AM EST ZZZ HISTORICAL HPV DNA, HIGH RISK, CERVICAL Routine 06/13/2020 12:00 AM EDT THINPREP PAP Routine 06/13/2020 12:00 AM EDT from Last 3 Months or Most Recently Relevant to Health Maintenance Results * (ABNORMAL) CBC auto differential (08/11/2025 12:13 PM EDT) White Blood Count 7.9 4.8 - 10.8 X10*3/uL [facility] Red Blood Count 4.12(L) 4.20 - 5.50 X10*6/uL [facility] Hemoglobin 13.2 12.0 - 16.0 g/dl [facility] Hematocrit 40.0 37.0 - 47.0 % [facility] Mean Corpuscular Volume 97.1 80.0 - 98.0 fL [facility] Mean Corpuscular Hemoglobin 32.0 27.0 - 33.0 pg [facility] Mean Corpuscular HGB Conc 33.0 31.0 - 35.0 g/dl [facility] Red Cell Distribution Width 13.6 11.0 - 16.0 % [facility] Platelet Count 269 160 - 400 X10*3/uL [facility] Mean Platelet Volume 9.4 9.4 - 12.3 fL [facility] Neutrophils Percent Auto 47.7 45 - 73 % [facility] Imm Gran Pct Auto 0.6(H) 0.0 - 0.4 % [facility] Lymphocytes Percent Auto 42.3(H) 20 - 40 % [facility] Monocytes Percent Auto 4.7 2 - 11 % [facility] Eosinophils Percent Auto 3.8 0 - 4 % [facility] Basophils Percent Auto 0.9 0 - 2 % [facility] NRBC Pct Auto 0.0 0.0 - 0.2 /100WBC [facility] Neutrophils Absolute Auto 3.7 2.0 - 8.3 x10*3/uL [facility] Imm Gran Abs Auto 0.05(H) 0.00 - 0.03 X10*3/uL [facility] Lymphocytes Absolute Auto 3.3 1.2 - 4.9 X10*3/uL [facility] Monocytes Absolute Auto 0.4 0.1 - 1.2 X10*3/uL [facility] Eosinophils Absolute Auto 0.3 0.0 - 0.4 X10*3/uL [facility] Basophils Absolute Auto 0.1 0.0 - 0.2 X10*3/uL [facility] NRBC Abs Auto 0.000 0.0 - 0.012 X10*3/uL [facility] Blood Venous blood specimen / Unknown 08/11/2025 12:13 PM EDT 08/11/2025 1:17 PM EDT us Jaci Stauffer MD LAB BLOOD ORDERABLES Final Resul t [facility] [address] [place] [phone] * Cologuard?? colon cancer screening (01/27/2025 6:15 AM EDT) [facility] Signature Cologuard Result Negative Negative 02/03/20 8:55 AM EDT [employer] (CLIA #:[id number]) Comment: NEGATIVE TEST RESULT. A negative Cologuard result indicates a low likelihood that a colorectal cancer (CRC) or advanced adenoma (adenomatous polyps with more advanced pre-malignant features) is present. The chance that a person with a negative Cologuard test has a colorectal cancer is less than 1 in 1500 (negative predictive value >99.9%) or has an advanced adenoma is less than 5.3% (negative predictive value 94.7%). These data are based on a prospective cross-sectional study of 10,000 individuals at average risk for colorectal cancer who were screened with both Cologuard and colonoscopy. (Nazario Britt. et al, N Engl J Med 2014;370(14):7737-5289) The normal value (reference range) for this assay is negative. COLOGUARD RE-SCREENING RECOMMENDATION: Periodic colorectal cancer screening is an important part of preventive healthcare for asymptomatic individuals at average risk for colorectal cancer. Following a negative Cologuard result, the [place] Cancer Society and U.S. Multi-Society Task Force screening guidelines recommend a Cologuard re-screening interval of 3 years. References: [place] [employer] Guideline for Colorectal Cancer Screening: https://www.cancer.org/cancer/pgpeb-eyqaqm-zjsikc/pvtdpwbiq-ttxvziqpt-recsmlt/ac s-rec ommendations.html.; Tien DK, Gus CR, Roberto MathiasK, Colorectal Cancer Screening: Recommendations for Physicians and Patients from the U.S. Multi-Society Task Force on Colorectal Cancer Screening , Am J Gastroenterology 2017; 112:4074-2463. TEST DESCRIPTION: Composite algorithmic analysis of stool DNA-biomarkers with hemoglobin immunoassay. Quantitative values of individual biomarkers are not [...] Jean Baptiste al, N Engl J Med 2014;370(14):5625-8549.) Cologuard may produce a false negative or false positive result (no colorectal cancer or precancerous polyp present at colonoscopy follow up). A negative Cologuard test result does not guarantee the absence of CRC or advanced adenoma (pre-cancer). The current Cologuard screening interval is every 3 years. ([place] [employer] and U.S. Multi-Society Task Force). Cologuard performance data in a 10,000 patient pivotal study using colonoscopy as the reference method can be accessed at the following location: www.Otterology/results. Additional description of the Cologuard test process, warnings and precautions can be found at www.3CLogicrd.com. Stool specimen (specimen) 01/27/2025 6:15 AM EDT 01/29/2025 7:22 AM EDT Jaci Stauffer MD LAB MOLECULAR DIAGNOSTICS ORDERA BLES Final Result [employer] (CLIA #:[id number]) [address] [place] [address], * Lipid Panel with Reflex to Direct LDL (01/04/2025 11:17 AM EST) Triglycerides 96 <150 mg/dL [facility] Comment:Desirable Triglyceri de: less than 150 mg/dLBorderline High Triglyceride 150-199 mg/dLHigh Triglyceride: 200-499 mg/dLVery High Triglyceride: greater than or equal to 5OO mg/dL Cholesterol 175 <200 mg/dL [facility] Comment:Desirable Cholestero l: less than 200 mg/dLBorderline High Cholesterol: 200-239 mg/dLHigh Cholesterol: greater than 239 mg/dL LDL Cholesterol Calculated 94 <100 mg/dL [facility] Comment:Desirable LDL: less than 100 mg/dLNear Optimal/Above Optimal LDL: 110- 129 mg/dLBorderline High LDL: 130-159 mg/dLHigh LDL: 160-189 mg/dLVery High LDL: greater than or equal to 190 mg/dL HDL Cholesterol 62 >40 mg/dL [facility] Comment:Desirable HDL: great er than 40 mg/dL Note: This HDL assay may give artificially low results in patients with liver disease. Blood 01/04/2025 11:1 7 AM EST 01/04/2025 1:08 PM EST us Jaci Stauffer MD LAB BLOOD ORDERABLES Final Resul t Performing Organization Address City/[facility] Co de Phone Number [facility] [address] [place] [phone] * Hepatitis C Antibody with Reflex to HCV, RNA, Quantitative, Real-Time PCR (01/04/2025 11:17 AM EST) Hepatitis C Antibody Nonreactive Nonreactive [facility] Comment:Antibodies to HCV no t detected; does not exclude early acuteHCV infection. Blood Venous blood specimen / Unknown 01/04/2025 11:17 AM EST 01/04/2025 1:06 PM EST Jaci Stauffer MD LAB BLOOD ORDERABLES Final Resul t Performing Organization Address City/[facility] Co de Phone Number [facility] [address] [place] [phone] * HIV-1/2 Antigen and Antibodies, Fourth Generation, with Reflexes (01/04/2025 11:17 AM EST) HIV AB/AG Nonreactive Nonreactive [facility] Comment:HIV-1 p24 Ag and/or HIV-1/HIV-2 Ab not detected.A test result that is nonreactive does not exclude thepossibility of exposure to or infection with HIV-1 and/orHIV-2. Nonreactive results in this assay for individualswith prior exposure to HIV-1 and/or HIV-2 may be due toantigen and antibody levels that are below the limit ofdetection of this assay.The Travellution HIV Ag/Ab Combo assay result andsupplemental assay results should be interpreted inconjunction with the patient's clinical presentation,history and other laboratory results. If the results areinconsistent with clinical evidence, additional testing issuggested to confirm the result. Blood Venous blood specimen / Unknown 01/04/2025 11:17 AM EST 01/04/2025 1:06 PM EST us Jaci Stauffer MD LAB BLOOD ORDERABLES Final Resul t [facility] [address] [place] [phone] * BI Mammogram Screening Tomosynthesis Bilateral (01/14/2024 10:25 AM EST) Anatomical Region Laterality Modality Breast Bilateral Mammography 01/14/2024 10:2 5 AM EST Narrative 01/26/2024 4:55 AM EDT [facility] [address] [place] [address] Mammography Report Signed Patient: Prema Shaver MR#: [id number] : 1965 Acct:[id number] Age/Sex: 58 / F ADM Date: 01/14/24 Loc: JYOTSNA Attending Dr: Jaci Stauffer MD Ordering Physician: Jaci Stauffer MD Results: 1Negative Date of Service: 01/14/24 Follow Up: 1 Year From Orig inal Mammogram Procedure(s): MM tomosynthesis screening BI Accession Number(s): [id number] cc: Jaci Stauffer MD EXAMINATION: MM SCREENING [...] Solomon MD Signed By: <Electronically signed by Claudai Solomon MD in OV> 01/26/24 0451 DD/ 1025 TD/TT: Casing Wringer Operator: Procedure Note Donotuseinterpreter, Image - 01/26/2024 [facility] [address] [place] [address] Mammography Report Signed Patient: Prema Shaver [facility]#: [id number] : 1965Acct:[id number] Age/Sex: 58 / FADM Date: 01/14/24 Loc: JYOTSNA Attending Dr: Jaci Stauffer MD Ordering Physician: Jaci Stauffer MDResults: 1Negative Date of Service: 01/14/24Follow Up: 1 Year From Orig ina Mammogram Procedure(s): MM tomosynthesis screening BI Accession Number(s): [id number] cc: Jaci Stauffer MD EXAMINATION: MM SCREENING [...] in OV> 01/26/24 0451 DD/ 1025 TD/TT: Casing Wringer Operator: Jaci Stauffer MD IMG BI PROCEDURES Final Result * HPV DNA, HIGH RISK, CERVICAL (06/13/2020 12:00 AM EDT) HPV DNA, HIGH RISK, CERVICAL [facility] Comment: Test not performed. The specimen was in an acceptable condition when received and a problem developed during handling. 06/13/2020 Jaci Stauffer MD HISTORICAL/NON ORDERABLE LABS Fi nal Result [facility] [address] [place] [address], * THINPREP PAP (06/13/2020 12:00 AM EDT) Clinical Information: SEE COMMENT [facility] Comment:None given [facility]MENT [facility] Comment: EXPLANATORY NOTE: The Pap is a screening test for cervical cancer. It is not a diagnostic test and is subject to false negative and false positive results. It is most reliable when a satisfactory sample, regularly obtained, is submitted with relevant clinical findings and history, and when the Pap result is evaluated along with historic and current clinical information. Mechanical Manufacturing Technician: [facility] Comment: SXA, CT(ASCP) CT screening location: [address] [address] Interpretation/Resu lt: [facility] [...] MD LAB PATHOLOGY ORDERABLES Final R esult [facility] [address] from Last 3 Months or Most Recently Relevant to Health Maintenance [id number] [place] [address] Care Teams Volunteer Assistant Relationship Specialty Start Date End Date Jaci Stauffer MD [address] [place] [phone] PCP - General Family Medicine 10/22/12
[2025-08-11 13:59] LABS: Alanine Aminotransferase 14 U/L (0-31); Albumin Level 4.5 g/dL (3.5-5.0); Alkaline Phosphatase 51 U/L (39-117); Anion Gap 11 (12-20); Aspartate Amino Transferase 18 U/L (5-31); Blood Urea Nitrogen 17 mg/dL (9-16); Calcium 9.3 mg/dL (8.4-10.2); Carbon Dioxide 25 mmol/L (22-29); Chloride 108 mmol/L (96-108); Estimated Glomerular Filt Rate > 60; Potassium 4.0 mmol/L (3.3-5.1); Sodium 140 mmol/L (135-145); Total Protein 7.1 g/dL (6.5-8.0)
[2025-08-11 14:04] LABS: Free T4 (Free Thyroxine) 1.12 ng/dL (0.71-1.85); Thyroid Stimulating Hormone 6.13 uIU/mL (0.32-4.0)
[2025-08-11 14:37] LABS: Appearance Urine Clear; Glucose Urine UA Negative (Negative); PH 6.5 (5.0-9.0); Specific Gravity - Urine 1.010 (1.005-1.025)
== END 2025-08-11 12:07 | disposition home or self-care (01) ==
LOC: HO.HHCL 12:06
PROVIDERS: PCP Family Medicine; Visit Provider Family Medicine
DX: R53.83 Other fatigue (principal); E89.0 Postprocedural hypothyroidism
CPT/HCPCS: 36415; 80053; 81001; 84439; 84443; 85025

== ENCOUNTER 2025-09-29 09:12 | Outpatient (REF) | payer MEDICAID, SELFPAY ==
--- OUTSIDE RECORDS SUMMARY | 2025-09-27 09:30 | XMS_ITS | Encounter Summary ---
Author Organization [employer] Address [address] [facility] [address] [place] [address] Care Team Providers Care A P Supervisor Name Role Phone Jaci Stauffer MD Primary Care Provider Reason for Visit * Reason Comments sick visit Encounter Details Date Type Department Care Team (Late st Contact Info) Description 09/27/2025 9:30 AM EST Office Visit [facility] [address] [place] [address] Mariah Shanks MD [address] [place] [address] Numbness of lip (Primary Dx) Social History Tobacco Use Types Packs/Day Years Used Date Smoking Tobacco: Every Day Cigarettes 1 42.9 Started: 1982 Smokeless Tobacco: Never Alcohol Use [...] Access Q2 Not on file 01/04/2025 Comments No Sex and Gender Information Value Date Recorded Sex Assigned at Female 09/09/2022 10:18 AM EDT Legal Sex Female 10:18 AM EDT Gender Identity Female 09/09/2022 10:18 AM EDT Sexual Orientation Straight 09/09/2022 10 :18 AM EDT documented as of this encounter Last Filed Vital Signs Vital Sign Reading Time Taken Comments Blood Pressure 120/60 09/27/2025 9:32 AM EST Pulse 72 09/27/2025 9:32 AM EST Temperature 36.7 C (98.1 F) 09/27/2025 9:32 AM EST Respiratory Rate 20 09/27/2025 9:32 AM EST Oxygen Saturation 98% 09/27/2025 9:32 AM EST Inhaled Oxygen Concentration - - Weight 109 kg (241 lb) 09/27/2025 9:32 AM EST Height 167.6 cm (5' 6 ) 09/27/2025 9:32 AM EST Body Mass Index 38.9 09/27/2025 9:32 AM EST documented in this encounter Progress Notes * Mariah Benjamin MD - 09/27/2025 9:30 AM EST SUBJECTIVE: Prema Matos Sivakumar is a 60 y.o. year old female who presents for acute visit . Prema Shaver, 60 years Oral Numbness - Onset of numbness in lips approximately 2 weeks ago, with progression to tongue numbness - No changes in food or medications prior to onset - First occurrence of these symptoms - Symptoms affect the whole lips, not just one side - No associated changes in speech, confusion, or fainting - No new weakness in arms or legs Chronic Leg Weakness - Weakness in legs present for over a year - No recent worsening or new symptoms Fatigue - Reports feeling tired - July 2025 thyroid function tests: mild elevation of thyroid hormones Social History Social History Narrative Not on file Problem List[1] Allergic rhinitis Chronic headache disorder Depression Graves' disease Lumbar spondylosis Migraine Mood disorder (CMS/HCC) Obesity Paroxysmal atrial flutter (CMS/HCC) ([facility]) Tobacco dependence syndrome Postoperative hypothyroidism Osteoarthritis of both knees Vitamin D deficiency Low back pain with radiation Fatigue Numbness of lip Family History[2] Review of Systems Constitutional: Negative. HENT: Negative. Respiratory: Negative. Cardiovascular: Negative. Gastrointestinal: Negative. Neurological: Positive for numbness. Negative for dizziness, tremors, seizures, syncope, facial asymmetry, speech difficulty, weakness, light-headedness and headaches. OBJECTIVE: Vitals: 09/27/25 0932 BP: 120/60 BP Location: Left arm Patient Position: Sitting BP Cuff Size: Large adult Pulse: 72 Resp: 20 Temp: 98.1 ??F (36.7 ??C) TempSrc: Oral SpO2: 98% Weight: 241 lb (109 kg) Height: 5' 6 (1.676 m) Physical Exam Constitutional: Appearance: Normal appearance. Cardiovascular: Rate and Rhythm: Normal rate and regular rhythm. Pulmonary: Effort: Pulmonary effort is normal. Breath sounds: Normal breath sounds. Abdominal: General: Abdomen is flat. Palpations: Abdomen is soft. Musculoskeletal: Right lower leg: No edema. Left lower leg: No edema. Neurological: General: No focal deficit present. Mental Status: She is alert and oriented to person, place, and time. Mental status is at baseline. Cranial Nerves: No cranial nerve deficit. Motor: No weakness. Gait: Gait normal. Follow Up: No follow-ups on file. Medications Ordered Prior to Encounter[3] Problem List Items Addressed This Visit Numbness of lip - Primary Relevant Orders Vitamin B12/Folate, Serum Panel Methylmalonic Acid Homocysteine RPR (Monitor) with Reflex to Titer Hemoglobin A1c Numbness of lip: - Numbness of lip and tongue likely related to side effects of current medications (patient also having repetitive movements with her mouth tardive dysinesia?) or possible hormonal or vitamin deficiency. Stroke and other focal neurological deficits are unlikely given the absence of additional symptoms. - Ordered repeat blood work including thyroid and vitamin levels. Advise to notify psychiatry regarding oral numbness and repetitive mouth movements for possible medication adjustment. Recommended follow-up with psychiatrist/PCP in about one month. If laboratory results are normal and symptoms persist, consider medication side effects as etiology and discuss alternative management with psychiatry. -ED precautions reviewed with patient This note was drafted using Ambient (AI) technology. The patient/patient's guardian has been informed and has consented to the use of this technology: Yes [1] Patient Active Problem List Diagnosis Allergic rhinitis Chronic headache disorder Depression Graves' disease Lumbar spondylosis Migraine Mood disorder (CMS/HCC) Obesity Paroxysmal atrial flutter (CMS/HCC) (HCC) Tobacco dependence syndrome Postoperative hypothyroidism Osteoarthritis of both knees Vitamin D deficiency Low back pain with radiation Fatigue Numbness of lip [2] No family history on file. [3] Current Outpatient Medications on File Prior to Visit Medication Sig Dispense Refill acetaminophen (Tylenol) 500 MG tablet take 1 tablet (500MG) by oral route every 6 hours as needed ARIPiprazole (Abilify) 15 MG tablet take 1 tablet by oral route every day cholecalciferol (Vitamin D-3) 25 MCG tablet TAKE ONE TABLET BY MOUTH EVERY DAY 90 tablet 3 clonazePAM (KlonoPIN) 1 MG tablet take 1 Tablet by Oral route at bedtime cyclobenzaprine (Flexeril) 10 MG tablet TAKE 1 TABLET BY MOUTH AT BEDTIME IF NEEDED 30 tablet 3 levothyroxine (Synthroid) 150 MCG tablet Take 1 tablet by mouth every Friday morning 12 tablet 1 levothyroxine (Synthroid, Levoxyl) 175 MCG tablet TAKE 1 TABLET BY MOUTH EVERY MORNING FROM FRIDAY TO FRIDAY. 90 tablet 1 loratadine (Claritin) 10 MG tablet TAKE ONE TABLET BY MOUTH EVERY MORNING 90 tablet 1 metoprolol tartrate (Lopressor) 25 MG tablet take 1 tablet by oral route 2 times every day nicotine (Nicoderm, Step 1) 21 MG/24HR patch Place 1 patch on the skin 1 (one) time each day at thesame time. 42 patch 1 nicotine polacrilex (Commit) 4 MG lozenge Dissolve 1 lozenge (4 mg) in the mouth every 2 (two) hours if needed for smoking cessation. 100 lozenge 0 topiramate (Topamax) 25 MG tablet take 1 (25MG) by oral route 2 times every bedtime traZODone (Desyrel) 50 MG tablet TAKE ONE AND ONE-HALF TABLETS BY MOUTH AT BEDTIME 45 tablet 3 No current facility-administered medications on file prior to visit. documented in this encounter Plan of Treatment Scheduled Orders Name Type Priority Associated Diagnoses Orde r Schedule Vitamin B12/Folate, Serum Panel Lab Routine Numbness of lip Expected: 09/27/2025, Expires: 09/27/2026 Methylmalonic Acid Lab Routine Numbness of lip Expected: 09/27/2025 (Approximate), Expires: 09/27/2026 Homocysteine Lab Routine Numbness of lip Expected: 09/27/2025 (Approximate), Expires: 09/27/2026 RPR (Monitor) with Reflex to Titer Lab Routine Numbness of lip Expected: 09/27/2025, Expires: 09/27/2026 documented as of this encounter Procedures Procedure Name Priority Date/Time Associated Diagnosis Comments HEMOGLOBIN A1C Routine 09/29/2025 9:38 AM EST Numbness of lip documented in this encounter Results * Hemoglobin A1c (09/29/2025 9:38 AM EST) Hemoglobin A1c 5.0 <6.0 % [facility] Comment:Hemoglobin A1C Refer ence Range Adults: 4.8 - 6.0 % Non diabetic: < 6.0 % Goal: < 7.0 %Additional Action Suggested: > 8.0 %Note: Hemoglobin A1c results are invalid for patients with abnormal amounts of HbF. Blood transfusions may impact the HbA1c concentration in the patient sample. Estimated Average Glucose 97 mg/dL [facility] Comment:eAG = Estimated ave rage glucose which is %A1C expressed asaverage glucose, using the formula of the H3S-IwaanchHwhprum Glucose study (ADAG), Diabetes Care, Vol.31,#8,Jun. 2007 Blood Venous blood specimen / Unknown 09/29/2025 9:38 AM EST 09/29/2025 9:38 AM EST us Mariah Benjamin MD LAB BLOOD ORDERABLES Final Result [facility] [address] [place] [address] [phone] documented in this encounter Visit Diagnoses Diagnosis Numbness of lip- Primary documented in this encounter Additional Health Concerns Assessment Noted Time PHQ-9 Depression Total Score: 0 01/05/20 25 2:40 PM EST documented as of this encounter Care Teams A P Supervisor Relationship Specialty Start Date End Date Jaci Stauffer MD [address] [place] [address] PCP - General Family Medicine 10/22/12 documented as of this encounter
[2025-09-29 11:50] LABS: Folate 14.4 ng/mL (> or = 4.0); Vitamin B12 740 pg/mL (200-900)
--- OUTSIDE RECORDS SUMMARY | 2025-09-29 11:50 | XMS_ITS | Encounter Summary ---
Author Organization [employer] Address [address] [place] [address] Care Team Providers Care Power Generation Equipment Repairer Name Role Phone Jaci Stauffer MD Primary Care Provider [phone] Encounter Details Date Type Department Care Team (Late st Contact Info) Description 01/04/2025 Orders Only [facility] [address] [place] [address] Jaci Stauffer MD [address] [place] [phone] Postoperative hypothyroidism (Primary Dx) Social History Tobacco [...] Free T4 0.26(L) 0.32 - 4.0 uIU/mL [facility] Blood 02/24/2025 10:0 7 AM EDT 02/24/2025 11:19 AM EDT us Jaci Stauffer MD LAB BLOOD ORDERABLES Final Resul t [facility] [address] [place] [phone] documented in this encounter Visit Diagnoses Diagnosis Postoperative hypothyroidism- Primary Postsurgical hypothyroidism documented in this encounter Additional Health Concerns Assessment Noted Time PHQ-9 Depression Total Score: 0 01/04/20 25 10:21 AM EST documented as of this encounter Care Teams Power Generation Equipment Repairer Relationship Specialty Start Date End Date Jaci Stauffer MD [address] [place] [address] PCP - General Family Medicine 10/22/12 documented as of this encounter
--- OUTSIDE RECORDS SUMMARY | 2025-09-29 11:50 | XMS_ITS | Encounter Summary ---
Author Organization [email or web address] Address [address] [facility] [address] [place] [address] Care Team Providers Care Food Production Associate Name Role Phone Jaci Stauffer MD Primary Care Provider [phone] Reason for Visit * Reason Onset Date Comments Med Refill 09/13/2024 Encounter Details Date Type Department Care Team (Late st Contact Info) Description 09/13/2024 Telephone [facility] MED[facility]INE [address] [place] [address] Jaci Stauffer MD [address] [place] [address] Med Refill Social History Tobacco Use Types [...] the past 12 months, has t he [place], gas, oil or water [employer] threatened to shut off services in your [...] documented as of this encounter Care Teams Food Production Associate Relationship Specialty Start Date End Date Jaci Stauffer MD [address] [place] [phone] PCP - General Family Medicine 10/22/12 documented as of this encounter
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
--- OUTSIDE RECORDS SUMMARY | 2025-09-29 11:50 | XMS_ITS | Encounter Summary ---
Author Organization [employer] Address [address] [facility] 7t [place] [address] Care Team Providers Care Site Acquisition Specialist Name Role Phone Jaci Stauffer MD Primary Care Provider [phone] Reason for Visit * Reason Comments Med Refill Encounter Details Date Type Department Care Team (Late st Contact Info) Description 01/12/2025 Refill [facility] [address] [place] [address] Jaci Stauffer MD [address] [place] [address] Social History Tobacco Use Types Packs/Day Years [...] documented as of this encounter Care Teams Site Acquisition Specialist Relationship Specialty Start Date End Date Jaci Stauffer MD [address] [place] [id number] PCP - General Family Medicine 10/22/12 documented as of this encounter
--- OUTSIDE RECORDS SUMMARY | 2025-09-29 11:50 | XMS_ITS | Encounter Summary ---
Author Organization [employer] Address [address] [facility] [address] 7[address] [place] [address] Care Team Providers Care Client Care Manager Name Role Phone Jaci Stauffer MD Primary Care Provider [phone] Encounter Details Date Type Department Care Team (Latest Contact Info) Description 09/27/2025 Travel Social History Tobacco Use Types Packs/Day [...] is your housing situation today? I have logna lassiter 01/04/[address] you [...] documented as of this encounter Care Teams Client Care Manager Relationship Specialty Start Date End Date Jaci Stauffer MD [address] [place] [address] PCP - General Family Medicine 10/22/12 documented as of this encounter
--- OUTSIDE RECORDS SUMMARY | 2025-09-29 11:51 | XMS_ITS | Encounter Summary ---
Author Organization [employer] Address [address] [facility] [address] 7[address] [place] [address] Care Team Providers Care Structural Steel Engineer Name Role Phone Jaci Stauffer MD Primary Care Provider [phone] Encounter Details Date Type Department Care Team (Late st Contact Info) Description 01/18/2025 Orders Only [facility] [address] [place] [address] Jaci Stauffer MD [address] [place] [address] Social History Tobacco Use Types Packs/Day Years [...] documented as of this encounter Care Teams Structural Steel Engineer Relationship Specialty Start Date End Date Jaci Stauffer MD [address] [place] [address] PCP - General Family Medicine 10/22/12 documented as of this encounter
--- OUTSIDE RECORDS SUMMARY | 2025-09-29 11:51 | XMS_ITS | Encounter Summary ---
Author Organization [employer] Address [address] [facility] 7t [place] [address] Care Team Providers Care Night Clerk Auditor Name Role Phone Jaci Stauffer MD Primary Care Provider [phone] Reason for Visit * Reason Onset Date Comments Nurse Triage 09/26/2025 Encounter Details Date Type Department Care Team (Late st Contact Info) Description 09/26/2025 Telephone [facility] [address] [place] [address] Jaci Stauffer MD [address] [place] [address] Nurse Triage Social History Tobacco Use Types [...] the past 12 months, has t he [employer] gas, oil or water company threatened to [...] encounter Miscellaneous Notes * Telephone Encounter - Marycruz Santiago RN - 09/26/2025 2:51 PM EST Call returned to Patient. Patient reports persistent top and bottom lip numbness (more on bottom than top) x 1 week. Numbness audibly affects her speech. Patient discloses that she lost a tooth spontaneously about 1 month ago but thought this was unrelated. Patient does report some gum pain. Deniesfacial droop, unilateral limb numbness or weakness, difficulty swallowing/breathing, fever, or other neurological symptoms. Red flags reviewed; patient advised to call 911 if any develop. Same-day evaluation was strongly recommended, but patient declined any appointments today and is not in agreement to seek urgent care. Sick visit scheduled tomorrow, 09/27/25, at 9:30am with Dr Casper. Patientverbalized understanding of risks and return precautions, Agreeable to appt. Protocols Used (2): Mouth Symptoms (Adult), No Protocol Available (Adult) Protocol Used: Mouth Symptoms (Adult) Care Advice Discussed: * Reasons To Call Back - You become worse Protocol Used: No Protocol Available (Adult) Care Advice Discussed: * Reasons To Call Back - New symptoms develop - You become worse * Telephone Encounter - Juvencio Nguyen - 09/26/2025 1:18 PM EST Tc from pt reporting she is experiencing some numbness in lips Contact pt at [phone] documented in this encounter Plan of Treatment Not on file documented as of this encounter Visit Diagnoses Not on filedocumented in this encounter Additional Health Concerns Assessment Noted Time PHQ-9 Depression Total Score: 0 01/05/20 25 2:40 PM EST documented as of this encounter Care Teams Night Clerk Auditor Relationship Specialty Start Date End Date Jaci Stauffer MD [address] [place] [id number] PCP - General Family Medicine 10/22/12 documented as of this encounter
--- OUTSIDE RECORDS SUMMARY | 2025-09-29 11:51 | XMS_ITS | Encounter Summary ---
Author Organization [employer] Address [address] [facility] [address] [place] [address] Care Team Providers Care French Folding Machine Operator Name Role Phone Jaci Stauffer MD Primary Care Provider [phone] Encounter Details Date Type Department Care Team (Late st Contact Info) Description 03/07/2025 Orders Only [facility] [address] [place] [address] Jaci Stauffer MD [address] [place] [address] Postoperative hypothyroidism (Primary Dx) Social History Tobacco [...] Name Priority Date/Time Associated Diagnosis Comments TSH Routine 08/11/2025 12:13 PM EDT Postoperative hypothyroidism T4, FREE Routine 08/11/2025 12:13 PM EDT Postoperative hypothyroidism documented in this encounter Results * (ABNORMAL) TSH (08/11/2025 12:13 PM EDT) Thyroid Stimulating Hormone 6.13(H) 0.32 - 4.0 uIU/mL [facility] Comment:Note: A sustained TS H level above 2.5 uIU/mL may warrant further investigation. TSH 3rd Generation ([facility]) Blood Venous blood specimen / Unknown 08/11/2025 12:13 PM EDT 08/11/2025 1:17 PM EDT us Jaci Stauffer MD LAB BLOOD ORDERABLES Final Resul t [facility] [address] [place] [address] [phone] * T4, Free (08/11/2025 12:13 PM EDT) Free T4 (Free Thyroxine) 1.12 0.71 - 1.85 ng/dL [facility] Blood Venous blood specimen / Unknown 08/11/2025 12:13 PM EDT 08/11/2025 1:17 PM EDT us Jaci Stauffer MD LAB BLOOD ORDERABLES Final Resul t [facility] [address] [place] [address] [phone] documented in this encounter Visit Diagnoses Diagnosis Postoperative hypothyroidism- Primary Postsurgical hypothyroidism documented in this encounter Additional Health Concerns Assessment Noted Time PHQ-9 Depression Total Score: 0 01/05/20 25 2:40 PM EST documented as of this encounter Care Teams French Folding Machine Operator Relationship Specialty Start Date End Date Jaci Stauffer MD [address] [place] [address] PCP - General Family Medicine 10/22/12 documented as of this encounter
--- OUTSIDE RECORDS SUMMARY | 2025-09-29 11:51 | XMS_ITS | Encounter Summary ---
Author Organization [employer] Address [address] [facility] [address] [place] [address] Care Team Providers Care Support Coordinator Name Role Phone Jaci Stauffer MD Primary Care Provider [phone] Encounter Details Date Type Department Care Team (Late st Contact Info) Description 08/11/2025 Orders Only [facility] [address] [place] [address] Jaci Stauffer MD [address] [place] [address] Postoperative hypothyroidism (Primary Dx) Social History Tobacco [...] Free T4 Lab Routine Postoperative hypothyroidism Expected: 08/11/2025 (Approximate), Expires: 08/11/2026 documented as of this encounter Visit Diagnoses Diagnosis Postoperative hypothyroidism- Primary Postsurgical hypothyroidism documented in this encounter Additional Health Concerns Assessment Noted Time PHQ-9 Depression Total Score: 0 01/05/20 25 2:40 PM EST documented as of this encounter Care Teams Support Coordinator Relationship Specialty Start Date End Date Jaci Stauffer MD [address] [place] [address] PCP - General Family Medicine 10/22/12 documented as of this encounter
== END 2025-09-29 09:13 | disposition home or self-care (01) ==
LOC: HO.LAB 09:12
PROVIDERS: PCP Family Medicine; Visit Provider Internal Medicine
DX: Z11.3 Encounter for screening for infections with a predominantly sexual mode of transmission (principal); R20.0 Anesthesia of skin
CPT/HCPCS: 36415; 82607; 82746; 83036; 83090; 83921; 86592

== ENCOUNTER 2025-10-19 09:16 | Outpatient (REF) | payer MEDICAID, SELFPAY ==
--- NOTE | ~2025-10-19 | MM_ITS ---
EXAMINATION: MM SCREENING DIGITAL BREAST TOMOSYNTHESIS, BILATERAL CLINICAL INFORMATION: Screening. Asymptomatic. COMPARISON: Comparison made to multiple prior, most recent January 14, 2024, and most remote . TECHNIQUE: Digital breast tomosynthesis is performed in mediolateral oblique and craniocaudal views along with computer-aided detection (CAD). Synthesized 2D images are generated from the tomosynthesis. FINDINGS: BREAST COMPOSITION: There are scattered areas of fibroglandular density. BILATERAL BREASTS: No significant masses, suspicious calcifications or other abnormalities are seen in either breast. MM/MM tomosynthesis screening BI IMPRESSION: BILATERAL BREASTS: Negative, no mammographic evidence of malignancy. Normal interval follow-up is recommended in 12 months. ASSESSMENT: BI-RADS: Category 1: Negative RECOMMENDATION: Routine annual mammography screening. FOLLOW-UP: 1 year F/U This examination should not preclude the clinical evaluation of a suspicious palpable abnormality. This patient's information was entered into a reminder system with a target due date for their next mammogram. Electronically signed by: Jay Phipps MD 10/19/2025 07:32 PM [facility]
== END 2025-10-19 09:17 | disposition home or self-care (01) ==
LOC: HO.MAMMO 09:16
PROVIDERS: PCP Family Medicine; Visit Provider Family Medicine
DX: Z12.31 Encounter for screening mammogram for malignant neoplasm of breast (principal)
CPT/HCPCS: 77063; 77067

== ENCOUNTER → 2025-10-19 09:22 | Outpatient (BNV) | payer MEDICAID, SELFPAY | PROVIDERS: PCP Family Medicine; Visit Provider Radiology Body Imaging | DX: Z12.31 Encounter for screening mammogram for malignant neoplasm of breast (principal) | CPT/HCPCS: 77063; 77067 ==